=== PATIENT | female | born 1940 | race Caucasian/White ===

== ENCOUNTER 2025-08-11 10:27 | Outpatient (AMB) | payer MEDICARE, SELFPAY ==
--- OUTSIDE RECORDS SUMMARY | 2025-08-10 15:45 | XMS_ITS | Encounter Summary ---
Author Organization [facility] Address [address] [facility] [place] [address] Care Team Providers Care Supervisor Winter Name Role Phone Alix Bryan Primary Care Provider + [phone] Reason for Visit * Reason Comments Rectal Pain Encounter Details Date Type Department Care Team (Late st Contact Info) Description 08/10/2025 3:45 PM EST Office Visit [facility] of [address] [place] [phone] Michael García MD [address] [facility] [address] [address] Arrived Social History Tobacco Use Types Packs/Day Years Used Date Smoking Tobacco: Never Smokeless Tobacco: Never Alcohol Use Standard Drinks/Week Comments Not Currently 0 (1 standard drink = 0.6 oz pur e alcohol) rare Interpersonal Safety Answer Date Record ed Physical Abuse Unrecognized value 03/03/2025 Verbal Abuse Unrecognized value 03/03/2025 Comments No Sex and Gender Information Value Date Recorded Sex Assigned at Female 02/25/2025 12:07 PM EDT Legal Sex Female 11:15 AM EDT Gender Identity Female 03/03/2025 8:55 AM EDT Sexual Orientation Not on file documented as of this encounter Last Filed Vital Signs Vital Sign Reading Time Taken Comments Blood Pressure 128/69 08/10/2025 3:52 PM EST Pulse - - Temperature - - Respiratory Rate - - Oxygen Saturation - - Inhaled Oxygen Concentration - - Weight 52.2 kg (115 lb) 08/10/2025 3:52 PM EST Height 152.4 cm (5') 08/10/2025 3:52 PM EST Body Mass Index 22.46 08/10/2025 3:52 PM EST documented in this encounter Plan of Treatment Upcoming Encounters Date Type Department Care Team (Late st Contact Info) Description 08/12/2025 9:00 AM EST Office Visit [facility] [place] [address] [place] [address] Lucie Fitch PA [address] [place] [address] 05/17/2026 9:00 AM EDT Office Visit [facility] [place] [address] [place] [address] Filiberto Soler MD [address] [place] [phone] documented as of this encounter Visit Diagnoses Not on filedocumented in this encounter Care Teams Supervisor Winter Relationship Specialty Start Date End Date Alix Bryan PA [address] [place] [id number] PCP - General Instrument Repairer 03/09/25 documented as of this encounter
--- NOTE | 2025-08-11 10:29 | MHC.OFFVIS ---
Intake Visit Reasons: 6M HPI Comments Details: 84 years old woman with h/o migraine headaches, breast cancer, mild Alzheimer dementia, and chronic tension-type headaches. She is presenting with complaints of chronic headache and neck pain. Headache symptoms start in the back of her head and move towards the top, with notable pain worsening at night. The neck pain was initially minor at the lower neck but has since increased in severity. She finds some relief using heating pads and has recognized stress as a contributing factor to her pains. There is a history of systemic hypertension and hyperlipidemia. The patient mentioned previous imaging studies, though precise details were unavailable. 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 Medications for blood pressure and cholesterol management were indicated, though specifics were not described. Review of Systems Narrative - Neurological: Reports chronic headache and neck pain, worsens at night. Denies noticeable memory impairment. - Ophthalmologic: Reports legal blindness. - Musculoskeletal: Reports pain in neck starting from lower part, now increased and moved higher. - Psychiatric: Reports experiencing stress. Physical Exam Neuro Other: Mental Status: Alert and oriented to person, place, and time. Normal attention. Normal spontaneous speech, fluency, and comprehension. Cranial Nerves: CN II: Visual flowers full to confrontation, visual acuity intact. CN III, IV, : Pupils equal, round, reactive to light and accommodation. Extraocular movements are normal. CN V: Facial sensation is normal. CN VII: Facial movements symmetrical. CN VIII: Hearing intact to bedside conversation is normal. CN IX, X: Palate elevates symmetrically. CN XI: Shoulder shrug and head turn symmetrical. CN XII: Tongue midline without atrophy or fasciculations. mild forward cervical dystonia with moderate paraspinal muscle spasm Extrapyramidal: Full facial expressions and blinking. No rigidity. Movements are appropriate with no tremor or abnormality. Speech: Normal; no dysarthria or tremor. Assessment & Plan Assessment & Plan (1) Chronic tension type headache: Comment: Meds tried: Topiramate, cyclobenzperine Code(s): G44.229 - Chronic tension-type headache, not intractable Category: Medical Qualifiers: Intractability: not intractable Qualified Code(s): G44.229 - Chronic tension-type headache, not intractable (2) Neck pain: Code(s): M54.2 - Cervicalgia Category: Medical (3) Alzheimer disease: Code(s): G30.9 - Alzheimer's disease, unspecified; F02.80 - Dementia in other diseases classified elsewhere, unspecified severity, without behavioral disturbance, psychotic disturbance, mood disturbance, and anxiety Category: Medical (4) Cervical dystonia: Code(s): 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 - Spasmodic torticollis Category: Medical Plan Impression: a: Chronic tyension type/migraine type headaches b: Forward cervical dystonia c: Mild dementia, probably of Alzheimer type Rec: a: XR cervical spine b: DC topiramate c: Donepezil 10mg a day, which as per daughter is helping d: Try cyclobenzperine 5mg one at bedtime e: Bring CD of brain scan done at [facility] at next visit Orders: Orders XR cervical spine 2V Today G44.229 - Chronic tension-type headache, not intractable, M54.2 - Cervicalgia Medications: New cyclobenzaprine 5 mg PO BEDTIME 30 tabs 1RF Coding Level of Care Code Est Pt Level 3 (01158) Global (26618) Diagnoses Chronic tension-type headache, not intractable G44.229 Intractability: not intractable Neck pain M54.2 Alzheimer disease G30.9; F02.80 Cervical dystonia G24.3
--- OUTSIDE RECORDS SUMMARY | 2025-08-11 12:48 | XMS_ITS | Data Portability ---
Author Organization [facility] Address [address] [place] [address] Care Team Providers Care Coding Analyst Name Role Phone BRIELLE MALDONADO Primary Care Provider Assessment No assessment recorded. Plan of Treatment Reminders Order Date Submit Date Provider Last Modified By Organization Details Last Modified Time Details Appointments None record ed. Lab None record ed. Referral None record ed. Procedures None record ed. Surgeries None record ed. Imaging None record ed. Medication Orders None record ed. Patient TargetsNo targets recorded. Patient InstructionsNo instructions recorded. Reason for Referral None Reported. Problems Name Problem SNOMED Code Status Onset Date Resolution Date Notes Provider Name and Address Organization Details Recorded Time Diarrhea 29699076 Active 2024 Genevieve Muller APRN [address] [place], [address], [facility] 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 12:01:19 Problem Notes None recorded. Medical Equipment None Reported. Medications Name Sig Start Date Stop Date Status Note LastModified by Organization Details LastModified Time cyclobenzap rine 10 mg tablet TAKE 1 TABLET BY MOUTH EVERY DAY AT NIGHT 02/02 completed Not Available Not Available Not Available amoxicillin 500 mg capsule TAKE 1 CAPSULE BY MOUTH EVERY 6 HOURS UNTIL FINISHED 02/02 completed Not Available Not Available Not Available atorvastati n 20 mg tablet TAKE 1 TABLET BY MOUTH EVERY DAY active Not Available Not Available No t Available donepezil 5 mg tablet TAKE 1 TABLET BY MOUTH EVERY DAY AT BEDTIME FOR 90 DAYS active Not Available Not Available No t Available trazodone 50 mg tablet TAKE 3 TABLETS BY MOUTH AT BEDTIME NEEDED FOR SLEEP active Not Available Not Available No t Available ibuprofen 800 mg tablet TAKE 1 TABLET BY MOUTH EVERY 8 HOURS NEEDED FOR PAIN active Not Available Not Available No t Available donepezil 10 mg tablet TAKE 1 TABLET BY MOUTH EVERY DAY AT BEDTIME FOR 90 DAYS active Not Available Not Available No t Available prednisone 20 mg tablet TAKE 2 TABLETS BY MOUTH EVERY DAY FOR 5 DAYS 02/02 completed Not Available Not Available Not Available gabapentin 400 mg capsule TAKE 2 CAPSULES BY MOUTH 3 TIMES A DAY 02/02 completed Not Available Not Available Not Available cyanocobala min (vit B-12) 1,000 mcg tablet TAKE 1 TABLET BY MOUTH EVERY DAY active Not Available Not Available No t Available topiramate 25 mg tablet TAKE 1 TABLET BY MOUTH TWICE A DAY FOR 90 DAYS active Not Available Not Available No t Available metronidazo le 500 mg tablet TAKE 1 TABLET BY MOUTH AT 1PM, 2PM AND 8PM ON DAY PRIOR TO SURGERY active Not Available Not Available No t Available amlodipine 5 mg tablet TAKE 1 TABLET BY MOUTH EVERY DAY active Not Available Not Available No t Available tramadol 50 mg tablet TAKE 1 TABLET BY MOUTH EVERY 12 HOURS NEEDED FOR PAIN 02/02 completed Not Available Not Available Not Available vancomycin 125 mg capsule TAKE 1 CAPSULE BY MOUTH 4 TIMES A DAY FOR 10 DAYS. 02/02 completed Not Available Not Available Not Available ketorolac 0.5 % eye drops PLEASE SEE ATTACHED FOR DETAILED DIRECTION S active Not Available Not Available No t Available hydrocortis one 2.5 % topical cream with perineal applicator INSERT INTO THE RECTUM 2 TIMES A DAY IF NEEDED FOR HEMORRHOI DS. NOT LONGER THAN 7 DAYS IN A ROW. active Not Available Not Available No t Available alprazolam 0.5 mg tablet TAKE 1 TABLET BY MOUTH 1/2 HOUR BEFORE PROCEDURE MAY REPEAT X 1 active Not Available Not Available No t Available lorazepam 0.5 mg tablet TAKE 2 TABLETS BY MOUTH AT BEDTIME active Not Available Not Available No t Available methocarbam ol 750 mg tablet TAKE 1 TABLET BY MOUTH 3 TIMES A DAY 02/02 completed Not Available Not Available Not Available acyclovir 5 % topical ointment APPLY TO AFFECTED AREA TOPICALLY EVERY 3 HOURS FOR 7 DAYS 02/02 completed Not Available Not Available Not Available omeprazole 20 mg capsule,del ayed release TAKE 1 CAPSULE BY MOUTH EVERY DAY active Not Available Not Available No t Available metoprolol succinate ER 25 mg tablet,exte nded release 24 hr TAKE 1 TABLET BY MOUTH EVERY DAY 02/02 completed Not Available Not Available Not Available azelastine 137 mcg (0.1 %) nasal spray USE 1 SPRAY IN EACH NOSTRIL TWICE DAILY active Not Available Not Available No t Available estradiol 0.01% (0.1 mg/gram) vaginal cream APPLY 1 GM VAGINALLY AT BEDTIME DAILY FOR 2 WEEKS, THEN CHANGE TO TWICE WEEKLY. 02/02 completed Not Available Not Available Not Available neomycin 500 mg tablet SEE ADMIN INSTRUCTI ONS. TAKE 2 TABS BY MOUTH AT 1PM, 2PM AND 8PM ON DAY PRIOR TO SURGERY active Not Available Not Available No t Available hydrocortis one 2.5 % topical ointment APPLY TO AFFECTED AREA TWICE A DAY FOR 14 DAYS 02/02 completed Not Available Not Available Not Available fluoxetine 20 mg capsule TAKE 1 CAPSULE BY MOUTH EVERY DAY active Not Available Not Available No t Available fluticasone propionate 50 mcg/actuati on nasal spray,suspe nsion USE 1 SPRAY IN BOTH NOSTRILS DAILY IN THE MORNING FOR 14 DAYS active Not Available Not Available No t Available colestipol 1 gram tablet TAKE 2 TABLETS BY MOUTH 2 TIMES A DAY. 02/02 completed Not Available Not Available Not Available dicyclomine 10 mg capsule TAKE 1 CAPSULE BY MOUTH THREE TIMES A DAY NEEDED active Not Available Not Available No t Available amoxicillin 875 mg-potassiu m clavulanate 125 mg tablet TAKE 1 TABLET BY MOUTH EVERY 12 HOURS FOR 7 DAYS 02/02 completed Not Available Not Available Not Available oxycodone 5 mg tablet TAKE 1 TABLET BY MOUTH DAILY NEEDED FOR PAIN 02/02 completed Not Available Not Available Not Available cholestyram ine (with sugar) 4 gram powder for susp in a packet PLEASE SEE ATTACHED FOR DETAILED DIRECTION S 02/02 completed Not Available Not Available Not Available levocetiriz ine 5 mg tablet TAKE 1 TABLET BY MOUTH EVERY EVENING active Not Available Not Available No t Available Effer-K 10 mEq effervescen t tablet TAKE 2 TABLETS (20 MEQ TOTAL) BY MOUTH 1 (ONE) TIME EACH DAY. active Not Available Not Available No t Available sodium,pota ssium,mag sulfates 17.5 gram-3.13 gram-1.6 gram oral soln TAKE 177 ML BY MOUTH SEE ADMIN INSTRUCTI ONS. USE DIRECTED FOR BOWEL PREPARATI ON 02/02 completed Not Available Not Available Not Available Dificid 200 mg tablet TAKE 1 TABLET BY MOUTH 2 TIMES A DAY FOR 10 DAYS. 02/02 completed Not Available Not Available Not Available Arnuity Ellipta 100 mcg/actuati on powder for inhalation TAKE 1 PUFF BY MOUTH EVERY DAY 02/02 completed Not Available Not Available Not Available Vitals Date Recorded Body weight Heart rate Oxygen saturation Oxygen saturation in Arterial blood by Pulse oximetry Body mass index (BMI) Body height Systolic And Diastolic Provider Name and Address Organization Details Last Updated DateTime 5 96516.3 5 g 84 /min 96 % 96 % 21.9 kg/m2 152.4 cm 112/68 mm[Hg] Morelia Valdez [facility] 5 09:24:39 Social History None recorded. Functional Status None recorded. Mental Status None recorded. Family History Nothing Reported. Medical History No medical history recorded. Gynecological HistoryNo gynecological history recorded. Obstetrics History GPAL:G 0 P 0 0 0 0 Past Encounters Encounter ID Performer Location Encounter Start Date Encounter Closed Date Diagnosis/Indication Diagnosis SNOMED-CT Code Diagnosis ICD10 Code Diagnosis IMO Codes Diagnosis Note [id number] Genevieve Muller APRN [facility] [address] [place] [address] [place] [address] 02/02/2025 09:15:19 02/04/2025 13:45:27 Diarrhea 06394552 R19.7 [id number] It appears that she is suffering from overflow diarrhea as she had formed stools following treatment of C. difficile with fidaxomici n, and then was taking cholestyra mine and Imodium prophylact ically, and went on to have 4 days without a bowel movement. She then developed watery explosive diarrhea associated with urgency, incontinen ce and abdominal cramping. I have encouraged her to stop all anti-diarr heals and to bulk her stools with Benefiber 2 teaspoons daily. Additional ly, she should start on Florastor (Saccharom yces Boulardii) 2 capsules once daily for 1 month to promote healthy microbiome . We discussed her diet and she was educated to avoid greasy, spicy, acidic foods and stick with a mostly bland diet that is balanced in protein, high fats and high calories. I do think she should avoid high roughage fruits and vegetables and stick to soft fruits and vegetables . She has an upcoming visit with Dr. 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 Recurrent Clostridium difficile infection 641260856 A49.8 [id number] Infection in October and then December 2024. Most recently treated with fidaxomici n and had a repeat C. difficile study within the week which was negative. We discussed that should she have recurrence of C. difficile, she would be a great candidate for Vowst (oral microbiome tx) administra tion following antibiotic therapy. Health Concerns Section Related Observation LastModified by Organization Detai ls LastModified Time None Recorded Concern Status LastModified by Organization Details LastModified Time None Recorded Advance Directives Directive None Recorded Payers Insurance Date Sequence Insurance Name Policy Number Policy Dominique Covered Member ID Dominique Member ID Guarantor Name 02/04/2025 2 [place] [id number] Enma Robert Whitman [id number] Enma Whitman 02/04/2025 1 [place]: NGS Enma Whitman [id number] nEma Whitman Notes Date Note Type Note Provider Name and Address Organization Details Recorded Time 02/02/2025 text/html ROS as noted in the HPI Enma is an 84-year-old female who presents to gastroenterology for evaluation of diarrhea, referred by Dr. García' group for a second opinion and has been also referred to ID for recurrence C diff. She has a history of anxiety, colitis, diverticulitis, HTN, IBS, status postcholecystectomy. At the emergency room she reported diarrhea every 1/2 hour with no blood and some formed stool. Imaging revealed mild small bowel distention with possible areas of wall thickening concerning for enteritis.Colonoscopy performed on 11/20/2023 revealed TC polypectomy with focal adenomatous low-grade dysplasia consistent with tubular adenoma with no high-grade dysplasia or carcinoma identified.C. difficile + 11/26/2024Positive for c diff 12/29/2024Fecal calprotectin ordered on 01/17/2025, CBC revealed WBC 4.6, H&H 12.5/38.6, RBCs normocytic normochromic, platelets 260, CMP revealed sodium 132, K3.2, AST 30, ALT 27, alk phos 69, magnesium 1.9, TTG AB IgA negative no IgA quant.Patient is known to Dr. García, she has a history of perforated diverticulitis s/p Whaley's with reversal February 2024. Patient is having a hard time with nutrition, going to the hospital every other week for fluids and supportive care. Has lost 30lbs. Taking OTC pepto, kaopectate, imodium, cholestyramine, resumed benefiber. Hemorrhoids flared, treated with hydrocortisone topical. Has follow up with Dr. García on 02/03/2025. She is here today with her two daughters. Report that she completed fidaxomicin following c diff episode in December and recent c diff study performed at [facility] ED was negative.She had formed stools after c diff. She was taking cholestyramine plus Imodium prophylactically to prevent diarrhea. She then went 4 days without a bowel movement and following that she began experiencing explosive watery diarrhea associated with urgency and incontinence. She has very little stool that is being passed. She will have significant cramping otherwise no other abdominal pain, bloating or gas. She has no nausea or vomiting her appetite is fair. She is not eating much as she is fearful of what to eat as she is afraid of provoking more diarrhea. She is on KCl 10 mEq daily. She denies bloody stools, hematochezia, lightheadedness, fainting, falls, dysphagia, odynophagia. Genevieve Muller APRN [address] [place], [address], [facility] 02/02/2025 12:06:56 OBGyn Episode No OBEpisode recorded.
--- OUTSIDE RECORDS SUMMARY | 2025-08-11 12:49 | XMS_ITS | Clinical Summary ---
Author Organization [facility] Address [address] [place] [address] Care Team Providers Care Senior Licensing Manager Name Role Phone Ekaterina Nunn PA-C Primary Care Provider [phone] Allergies Active Allergy Reactions Criticality Noted Date Comments Mirtazapine Other (See Comments) 03/24/2024 Other 02/27/2024 Dogs- sneezing, rhinitis Ragweed Shortness Of Breath High 03/24/2024 Seasonal 02/27/2024 Medications Medication Sig Dispensed Refills Start Date End Date Status amLODIPine (NORVASC) tablet 5 mg Take 1 tablet (5 mg total) by mouth daily. 0 05/19/2023 Active atorvastatin (LIPITOR) tablet 20 mg every night at bedtime. 0 09/07/2023 Active azelastine (ASTELIN) 0.1 % nasal spray INHALE 1 SPRAYS EACH NOSTRIL TWICE DAILY 0 01/31/2020 Active gabapentin (NEURONTIN) 400 MG capsule Take 1 capsule (400 mg total) by mouth 3 (three) times a day. Takes 1- 400mg tab TID, often only takes BID 0 09/18/2021 Active levalbuterol (XOPENEX HFA) 45 MCG/ACT inhaler INHALE 1 TO 2 PUFF(S) BY MOUTH EVERY 4-6 HOURS NEEDED 0 10/05/2021 Active LORazepam (ATIVAN) 0.5 MG tablet TAKE 2 TABLETS BY MOUTH AT BEDTIME 0 01/19/2018 Active omeprazole (PriLOSEC) 20 MG capsule Take 1 capsule (20 mg total) by mouth daily. 0 10/06/2023 Active UNABLE TO FIND as needed. Med Name: albuterol inhaler 0 Active UNABLE TO FIND daily. Med Name: Probiotic 0 Active UNABLE TO FIND daily. Med Name: vitamin B12 1000mcg 0 Active UNABLE TO FIND daily. Med Name: AREDS vitamins 0 Active FLUoxetine (PROzac) 20 MG capsule Take 1 capsule (20 mg total) by mouth daily. 0 12/12/2023 Active levocetirizine (XYZAL) 5 MG tablet Take 1 tablet (5 mg total) by mouth daily as needed. 0 02/27/2024 Active Fluticasone Furoate (Arnuity Ellipta) 100 MCG/ACT AEPB Inhale 100 mcg into the lungs daily. 0 02/09/2024 Active albuterol (PROVENTIL) (2.5 MG/3ML) 0.083% nebulizer solution Take 3 mL (2.5 mg total) by nebulization every 6 (six) hours as needed for wheezing or shortness of breath. 75 mL 12 03/08/2024 Active pantoprazole (PROTONIX) 40 MG tablet Take 1 tablet (40 mg total) by mouth every morning on an empty stomach. 30 tablet 0 03/09/2024 Active prochlorperazine (COMPAZINE) 5 MG tablet Take 1 tablet (5 mg total) by mouth every 6 (six) hours as needed. 30 tablet 0 03/08/2024 Active buPROPion (WELLBUTRIN XL) 150 MG 24 hr tablet Take 1 tablet (150 mg total) by mouth. 0 11/07/2019 Active EPINEPHrine 0.3 MG/0.3ML SOAJ USE DIRECTED FOR ANAPHYLAXIS AND DIAL 911 AFTER USE. 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 Social History Tobacco Use Types Packs/Day Years Used Date Smoking Tobacco: Never Smokeless Tobacco: Never Tobacco Cessation:Counseling Given: Not Answered Alcohol Use Standard Drinks/Week Comments Yes 0 (1 standard drink = 0.6 oz pur e alcohol) occ Sex and Gender Information Value Date Recorded Sex Assigned at Not on file Gender Identity Not on file Sexual Orientation Not on file Job Start Date Occupation Industry Not on file Not on file Not on file Last Filed Vital Signs Vital Sign Reading Time Taken Comments Blood Pressure 142/80 05/12/2024 11:40 AM EDT Pulse 57 05/12/2024 11:40 AM EDT Temperature 36.8 C (98.2 F) 03/08/2024 6:20 AM EDT Respiratory Rate 18 03/08/2024 6:20 AM EDT Oxygen Saturation 98% 03/08/2024 6:20 AM EDT Inhaled Oxygen Concentration - - Weight 56.7 kg (125 lb) 05/12/2024 11:40 AM EDT Height 152.4 cm (5') 05/12/2024 11:40 AM EDT Body Mass Index 24.41 05/12/2024 11:40 AM EDT Plan of Treatment Health Maintenance Due Date Last Done Comments Depression Screening 1954 Preventative Health Evaluation 1960 Fall Risk Assessment 2007 Osteoporosis Screening (DEXA Scan) 2007 RSV Adult > 60+ Yrs or (1 - 1-dose 75+ series) 2017 DTap / Tdap / Td (2 - Td or Tdap) 03/03/2022 03/03/2012 COVID-19 Vaccine ( season) 2025 07/15/2023, 10/16/2022, 05/08/2022, Additional history exists Influenza Vaccine (#1) 2025 , 05/31/2022, 07/07/2021, Additional history exists Shingrix-Zoster Vaccine Completed 03/23/2023, 05/31 Pneumococcal Vaccine Completed 03/24/2023, 09/16/2016, 12/18/2014, Additional history exists Hepatitis B Vaccines Aged Out No long er eligible based on patient's age to complete this topic RSV Ped < 20 months Aged Out No longe r eligible based on patient's age to complete this topic Advance Directives For more information, please contact: [phone] Latest Code Status on File Code Status Date Activated Date Inactivated Comments Full Code 03/03/2024 2:37 PM 03/09/2024 2:12 AM . Code Status History Code Status Date Activated Date Inactivated Comments Full Code 03/03/2024 6:10 AM 03/03/2024 2:37 PM This co de status was ascertained in the following way: discussion with patient . Care Teams Senior Licensing Manager Relationship Specialty Start Date End Date Ekaterina Nunn PA-C PCP - General Medical Services 10/16/23
--- OUTSIDE RECORDS SUMMARY | 2025-08-11 12:49 | XMS_ITS ---
Author Organization [facility] y Care Team Providers Care Rehabilitation Services Counselor Name Role Phone Yazmin Bronson Unavailable Unavailable Clay Foster Unavailable Unavailable Allergies and adverse reactions Code CodeSystem Substance Reaction Severity StartDate Concern Status Dogs Unknown 03/08/2024 active Seasonal Unknown 03/08/2024 active Care Team Name Role Address Phone Organization Dates Clay Foster [facility] [address] [place] [address].[address], [place], [address], [place] (Office): [facility] 03/09/2024 - 03/22/2024 Yazmin Bronson [address], [place], [address], [place] (Office): [facility] 03/09/2024 - 03/22/2024 Immunizations Immunization Status Vaccine Details Vaccine Code CodeSystem Date Notes TB 2 Step Mantoux Skin Test completed tuberculin skin test; unspecified formulation lotNumber: [id number] expiry: 12/27/2025 Mfg: Sanof[employer] Given 0.1 ml Left Forearm intradermally Step 2 of Multi-step with next step required 98 CVX created date: 03/16/2024 consent date: 03/16/2024 administer ed date: 03/16/2024 TB 2 Step Mantoux Skin Test completed tuberculin skin test; unspecified formulation lotNumber: [id number] expiry: 01/26/2027 Mfg: sanofi pasteur limited Given 0.1 ml Left Forearm intradermally Step 1 of Multi-step with next step required 98 CVX created date: 03/09/2024 consent date: 03/09/2024 administer ed date: 03/09/2024 Shingles (Herpes Zoster) completed zoster vaccine recombinant 187 CVX created date: 03/09/2024 administer ed date: 03/23/2023 Rec'd SHOE REPAIRER Shingles (Herpes Zoster) completed zoster vaccine recombinant 187 CVX created date: 03/09/2024 administer ed date: 05/31/2022 Rec'd SHOE REPAIRER SARS-COV-2 (COVID-19) completed SARS-COV-2 (COVID-19) vaccine, mRNA, spike protein, LNP, preservative free, 30 mcg/0.3mL dose Mfg: Pfizer Step 1 of Multi-step with next step required 208 CVX created date: 03/09/2024 administer ed date: 11/08/2020 Rec'd SHOE REPAIRER SARS-COV-2 (COVID-19) completed SARS-COV-2 (COVID-19) vaccine, mRNA, spike protein, LNP, preservative free, 30 mcg/0.3mL dose Mfg: Pfizer Step 2 of Multi-step with next step required 208 CVX created date: 03/09/2024 administer ed date: 11/01/2020 Rec'd SHOE REPAIRER (PFIZER) Covid-19 Booster completed SARS-COV-2 (COVID-19) vaccine, mRNA, spike protein, LNP, preservative free, 30 mcg/0.3mL dose Mfg: Pfizer 208 CVX created date: 03/09/2024 administer ed date: 05/08/2022 Rec'd SHOE REPAIRER (PFIZER) Covid-19 Booster completed SARS-COV-2 (COVID-19) vaccine, mRNA, spike protein, LNP, preservative free, 30 mcg/0.3mL dose Mfg: Pfizer 208 CVX created date: 03/09/2024 administer ed date: 07/22/2021 Rec'd SHOE REPAIRER PCV 20 completed Pneumococcal conjugate vaccine 20-valent (PCV20), polysaccharide [id number] conjugate, adjuvant, preservative free 216 CVX created date: 03/09/2024 administer ed date: 03/24/2023 Rec'd SHOE REPAIRER (PFIZER) BIVALENT Covid-19 Booster completed SARS-COV-2 (COVID-19) vaccine, mRNA, spike protein, LNP, bivalent, preservative free, 30 mcg/0.3 mL dose, joslyn-sucrose formulation Mfg: Pfizer 300 CVX created date: 03/09/2024 administer ed date: 10/16/2022 Rec'd SHOE REPAIRER Influenza FLUAD Quadrivalent Vaccine Adjuvanted completed Influenza, high-dose, split virus, trivalent, injectable, preservative free 135 CVX created date: 03/09/2024 administer ed date: 06/04/2023 Rec'd SHOE REPAIRER (PFIZER) Covid Vaccine 2022 - cancelled SARS-COV-2 (COVID-19) vaccine, mRNA, spike protein, LNP, preservative free, joslyn-sucrose, 30 mcg/0.3 mL dose 309 CVX created date: 03/09/2024 consent date: 03/09/2024 Educated by on 03/09/2024 Resident wishes to discuss with her PCP ([facility]) Covid Vaccine 2022 - completed SARS-COV-2 (COVID-19) vaccine, mRNA, spike protein, LNP, preservative free, joslyn-sucrose, 30 mcg/0.3 mL dose Mfg: Pfizer 309 CVX created date: 03/09/2024 administer ed date: 07/15/2023 Rec'd SHOE REPAIRER RSV Vaccine: Abrysvo cancelled Respiratory syncytial virus (RSV), vaccine, bivalent, protein subunit RSV prefusion F, diluent reconstituted, 0.5 mL, preservative free 305 CVX created date: 03/09/2024 consent date: 03/09/2024 Educated by on 03/09/2024 Resident wishes to discuss with her PCP Mental Status Section Date Assessment Total Score Description 03/22/2024 BIMS 15 cognitively int act CAM 0 No delirium ind icated PHQ-9 00 03/15/2024 BIMS 15 cognitively int act CAM 0 No delirium ind icated PHQ-9 00 Insurance Providers Problems Problem # Description Date of onset Resolved Date Code CodeSystem Concern Status 1 ABDOMINAL MIGRAINE, INTRACTABLE 03/08/[address] active 2 AGE-RELATED NUCLEAR CATARACT, UNSPECIFIED EYE 03/08/[address] active 3 ANXIETY DISORDER, UNSPECIFIED 03/08/[address] active 4 CHRONIC OBSTRUCTIVE PULMONARY DISEASE, UNSPECIFIED 03/08/[address] active 5 COGNITIVE COMMUNICATION DEFICIT 03/08/[address] active 6 DEPRESSION, UNSPECIFIED 03/08/[address] active 7 DIVERTICULITIS OF INTESTINE, PART UNSPECIFIED, WITH PERFORATION AND ABSCESS WITHOUT BLEEDING 03/08/[address] active 8 ENCOUNTER FOR ATTENTION TO COLOSTOMY 03/08/[address] active 9 ESSENTIAL (PRIMARY) HYPERTENSION 03/08/[address] active 10 GASTRO-ESOPHAGEAL REFLUX DISEASE WITHOUT ESOPHAGITIS 03/08/[address] active 11 HYPERLIPIDEMIA, UNSPECIFIED 03/08/[address] active 12 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 03/08/[address] active 13 MUSCLE WEAKNESS (GENERALIZED) 03/08/[address] active 14 OTHER ABNORMALITIES OF GAIT AND MOBILITY 03/08/[address] active 15 PNEUMONIA, UNSPECIFIED ORGANISM 03/08/[address] active 16 RETENTION OF URINE, UNSPECIFIED 03/08/[address] active 17 UNSPECIFIED ATRIAL FIBRILLATION 03/08/[address] active Reason for Referral No Reasons for Referral Entered Social History Social History Observation Description Start Date End Date Code Code System Current Smoking Status Tobacco smoking consumption unknown 144392803 SNOMED CT Sex Assigned At Female 1940 46078-8 [facility] Gender Identity Sexual Orientation Vital Signs Code Code System Vitals Name Values and Units Timing Information 79201-6 [facility] Pain Level Value=0.0 03/22/2024 9279-1 [facility] Respiratory Rate Value=17.0 Units=/m in 03/22/2024 8462-4 [facility] Blood Pressure-Diastolic Value=79 Un its=mmHg 03/22/2024 8480-6 [facility] Blood Pressure-Systolic Kpurx=788 Un its=mmHg 03/22/2024 8310-5 [facility] Body Temperature Value=97.4 Units= F 03/22/2024 8867-4 [facility] Heart rate Value=77.0 Units=/min 56360-0 [facility] O2 % BldC Oximetry Value=95.0 Units= % 03/22/2024 34569-6 [facility] Weight Oaadl=182.6 Units=Lbs 8302-2 [facility] Height Value=60.0 Units=Inches 03/10/2024
--- OUTSIDE RECORDS SUMMARY | 2025-08-11 12:49 | XMS_ITS | Clinical Summary ---
Author Organization [facility] Address [address] [address] Phone Care Team Providers Care Manager Merchandise Name Role Phone Tawnya Love MD Primary Care Provider [phone] Allergies Active Allergy Reactions Criticality Noted Date Comments Mirtazapine Other (See Comments) 11/13/2021 Weight gain Pt is unsure Ragweed Shortness Of Breath High 03/24/2024 Venom-Honey Bee Anaphylaxis High 11/13/2021 Pt says she's not allergic anymore Medications albuterol 90 mcg/actuation inhaler Inhale 2 puffs into the lungs. Active B complex with C#20-folic acid (NEPHROCAPS) 1 mg Cap Take 1 capsule by mouth. Active gabapentin (NEURONTIN) 600 MG tablet Take 600 mg by mouth. Active hydroCHLOROthiazid e (HYDRODIURIL) 25 MG tablet Take 25 mg by mouth. Active magnesium gluconate (MAGONATE) 500 mg (27 mg elemental) Tab Take by mouth. Activ e omeprazole (PRILOSEC) 20 MG capsule Take 20 mg by mouth. 10/14/19 18 Active simvastatin (ZOCOR) 20 MG tablet Take 20 mg by mouth. 11/16/19 18 Active DULoxetine (CYMBALTA) 60 MG capsule Take 60 mg by mouth daily. Active clindamycin (CLEOCIN) 2 % vaginal cream Place 1 applicator (5 g total) vaginally nightly. 40 g 07/21/20 18 Active Additional Information Patient not taking.Reported on 01/25/2019 alendronate (FOSAMAX) 35 MG tablet Take 1 tablet (35 mg total) by mouth every 7 days. Take in the morning with a full glass of water, on an empty stomach, and do not take anything else by mouth or lie down for the next 30 min. 13 tablet 4 01/26/20 19 Active azelastine (ASTELIN) 137 mcg (0.1 %) nasal spray INHALE 1 SPRAYS EACH NOSTRIL TWICE DAILY 01/31/20 20 Active buPROPion (WELLBUTRIN XL) 150 MG ER 24 hr tablet Take 150 mg by mouth every morning. 03/30/20 20 Active citalopram (CELEXA) 20 MG tablet Take 20 mg by mouth every morning. 03/07/20 20 Active citalopram (CELEXA) 10 MG tablet Take 10 mg by mouth nightly at bedtime. 03/30/20 20 Active EPINEPHrine 0.3 mg/0.3 mL auto-injector USE DIRECTED FOR ANAPHYLAXIS AND DIAL 911 AFTER USE. 01/14/20 20 Active FLOVENT HFA 110 mcg/actuation inhaler INHALE 2 PUFFS BY MOUTH TWICE A DAY 01/05/20 20 Active KIANA GARCÍA [facility] Spcr USE WITH METERED DOSE INHALERS 04/03/20 Active LORazepam (ATIVAN) 0.5 MG tablet Take 0.5 mg by mouth daily as needed. 04/03/20 20 Active vitamins A,C,G-thvq-tfswku (PRESERVISION AREDS) 14,[id number] ytss-fk-cxkz Cap Take 1 capsule by mouth 2 (two) times a day with meals. Active estradiol, bulk, 100 % PowdIndications:Va ginitis and vulvovaginitis estradiol compounding powder 0.5 mg/gm in HRT heavy cream, 10 each of 3 ml syringes, apply one ml a day to the introitus 90 g 3 04/13/20 20 Active estradiol, bulk, 100 % PowdIndications:Va ginitis and vulvovaginitis estradiol compounding powder 0.5 mg/gm in HRT Heavy Base , 10 each of 3 ml syringes, apply one ml a day to the introitus 90 g 3 04/20/20 20 Active acyclovir (ZOVIRAX) 5 % ointment APPLY TO AFFECTED AREA TOPICALLY EVERY 3 HOURS FOR 7 DAYS 04/11/20 24 Active amLODIPine (NORVASC) 5 MG tablet Take 5 mg by mouth daily. 05/19/20 23 Active atorvastatin (LIPITOR) 20 MG tablet Take 20 mg by mouth daily. Active cyanocobalamin, vitamin B-12, 1000 MCG tablet Take 1,000 mcg by mouth daily. Active docusate sodium (COLACE) 100 MG capsule TAKE 1 CAPSULE BY MOUTH TWICE A DAY FOR 30 DAYS NEEDED FOR CONSTIPATION 05/09/20 23 Active FLUoxetine (PROZAC) 20 MG capsule Take by mouth daily. Active ARNUITY ELLIPTA 100 mcg/actuation DsDv Inhale 100 mcg into the lungs. 11/25/19 24 Active hydrocortisone 2.5 % ointment Apply topically 2 (two) times a day. 05/30/20 24 Active ketorolac (ACULAR) 0.5 % ophthalmic solution PLEASE SEE ATTACHED FOR DETAILED DIRECTIONS 03/10/20 24 Active levocetirizine (XYZAL) 5 MG tablet Take 5 mg by mouth daily as needed. 02/28/20 23 Active methocarbamoL (ROBAXIN) 750 MG tablet Take 750 mg by mouth 3 (three) times a day. Active metoprolol succinate (TOPROL-XL) 25 MG 24 hr tablet Take 25 mg by mouth. 03/30/20 24 Active pantoprazole (PROTONIX) 40 MG tablet Take 40 mg by mouth. 03/09/20 24 Active prochlorperazine (COMPAZINE) 5 MG tablet Take 5 mg by mouth every 6 (six) hours as needed. 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 Grief at loss of child 01/25/2019 Menopausal syndrome on hormone replacement thera py 01/25/2019 Women's annual routine gynecological examination 01/25/2019 Resolved Problems Problem Noted Date Diagnosed Date Resolved Date Vaginitis and vulvovaginitis 07/21/2018 04/13/2020 Menopause syndrome 07/21/2018 0 Family History Medical History Relation Comments No Known Problems Father No Known Problems Maternal Grandfather Kidney failure Maternal Grandmother Bladder Cancer Mother Colon cancer Mother Heart failure Mother No Known Problems Paternal Grandfather No Known Problems Paternal Grandmother Liver disease Son Stomach cancer Son Relation Status Comments Father Maternal Grandfather Maternal Grandmother Mother Paternal Grandfather Paternal Grandmother Son Social History Tobacco Use Types Packs/Day Years Used Date Smoking Tobacco: Never Smokeless Tobacco: Never Alcohol Use Standard Drinks/Week Comments Not Currently 0 (1 standard drink = 0.6 oz pur e alcohol) Education Answer Date Recorded Are you interested in more education? Not on meliton e 01/24/2023 Are you concerned about learning? Not on file 01/24/2023 No 01/24/2023 No 01/24/2023 Digital Access Answer Date Recorded No 02/22/2023 No 02/22/2023 Reliable internet access at home? Not on file 02/22/2023 Device with a working camera? Not on file Comments No Sex and Gender Information Value Date Recorded Sex Assigned at Not on file Legal Sex Female 2:14 PM EDT Gender Identity Not on file Sexual Orientation Not on file Last Filed Vital Signs Vital Sign Reading Time Taken Comments Blood Pressure 106/62 01/25/2019 10:23 AM EDT Pulse - - Temperature - - Respiratory Rate - - Oxygen Saturation - - Inhaled Oxygen Concentration - - Weight 65.8 kg (145 lb) 01/25/2019 10:23 AM EDT Height 157.5 cm (5' 2 ) 04/13/2020 11:24 AM EDT Body Mass Index 27.4 01/25/2019 10:23 AM EDT Plan of Treatment Health Maintenance Due Date Last Done Comments POTASSIUM LEVEL 1940 DEPRESSION SCREENING 1954 PNEUMOCOCCAL VACCINES (50+ years) (1 of 1 - PCV) 1992 OSTEOPOROSIS SCREENING INITIAL (ONE-TIME) 2007 ZOSTER VACCINES (2 of 3) 03/03/2013 01/06/2013 RSV VACCINE (1 - 1-dose 75+ series) 2017 Adult Td,Tdap Booster 03/03/2022 03/03/2012 INFLUENZA VACCINE (#1) 2025 , 07/04/2020, 07/12/2019, Additional history exists COVID-19 VACCINE ( - season) 2025 11/29/2020, 11/08/2020 HEPATITIS A VACCINES Aged Out No long er eligible based on patient's age to complete this topic HIB VACCINES Aged Out No longer eligi ble based on patient's age to complete this topic IPV VACCINES Aged Out No longer eligi ble based on patient's age to complete this topic MENINGOCOCCAL VACCINES (ACWY) Aged Out No longer eligible based on patient's age to complete this topic MENINGOCOCCAL VACCINES (B) Aged Out N o longer eligible based on patient's age to complete this topic Medical Devices Not on file Insurance [employer] MEDEX SUPPLEMENT MEDICARE PART A & B [employer] MEDEX SUPPLEMENT MEDICARE PART A & B Member Subscriber Plan / Payer ( fective 2007-Present) Name:Enma Whitman Member ID:[id number] Relation to Subscriber:Self Name:Enma Whitman Subscriber ID:[id number] Payer ID:[id number] Group ID:Not on file Type:Medicare Address: [employer] [address] [employer] MEDEX SUPPLEMENT MEDICARE PART A & B [employer] MEDEX SUPPLEMENT MEDICARE PART A & B Member Subscriber Plan / Payer ( fective 2007-Present) Name:Enma Whitman Member ID:[id number] Relation to Subscriber:Self Name:Enma Whitman Subscriber ID:[id number] Payer ID:[id number] Group ID:Not on file Type:Medicare Address: [employer] [address] [employer] MEDEX SUPPLEMENT MEDICARE PART A & B Member Subscriber Plan / Payer ( fective 2007-Present) Name:Enma Whitman Member ID:[id number] Relation to Subscriber:Self Name:Enma Whitman Subscriber ID:[id number] Payer ID:[id number] Group ID:Not on file Type:Medicare Address: [employer] [address] [employer] MEDEX SUPPLEMENT MEDICARE PART A & B [facility] MEDEX SUPPLEMENT MEDICARE PART A & B [employer] MEDEX SUPPLEMENT MEDICARE PART A & B Member Subscriber Plan / Payer ( fective 2007-Present) Name:Enma Whitman Member ID:[id number] Relation to Subscriber:Self Name:Enma Whitman Subscriber ID:[id number] Payer ID:[id number] Group ID:Not on file Type:Medicare [facility] [address] [employer] MEDEX SUPPLEMENT MEDICARE PART A & B Care Teams Manager Merchandise Relationship Specialty Start Date End Date Tawnya Love MD [address] [place] [address] [email or web address] PCP - General Internal Medicine 06/09/24 Additional Source Comments The information contained in this document represents components of the legal health record. It is not the complete legal health record.[facility]
--- OUTSIDE RECORDS SUMMARY | 2025-08-11 12:49 | XMS_ITS | Clinical Summary ---
Author Organization [facility] [address] [facility] Address [address] [place] [address] Phone Care Team Providers Care Leadership Development Manager Name Role Phone Alix Bryan Primary Care Provider [phone] Allergies Active Allergy Reactions Criticality Noted Date Comments Bee Venom Protein (Honey Bee) Anaphylaxis High 11/13/2021 Pt says she's not allergic anymore Mirtazapine 03/24/2024 Other Reaction(s): Other (See Comments) Mold 08/10/2025 Other 02/27/2024 Seasonal Dogs- sneezing, rhinitis Ragweed Shortness of breath High 03/24/2024 Medications albuterol 2.5 mg /3 mL (0.083 %) nebulizer solution Take 3 mL (2.5 mg total) by nebulization every 6 (six) hours as needed for wheezing or shortness of breath. 4 Active amLODIPine (NORVASC) 5 mg tablet Take 1 tablet (5 mg total) by mouth daily. 3 Active atorvastatin (LIPITOR) 20 mg tablet every night at bedtime. 3 Active azelastine (ASTELIN) 137 mcg (0.1 %) nasal spray 0 Active EPINEPHrine (EPIPEN) 0.3 mg/0.3 mL injection 4 Active FLUoxetine (PROzac) 20 mg capsule 4 Active fluticasone furoate (Arnuity Ellipta) 100 mcg/actuation blister with device inhaler 4 Active gabapentin (NEURONTIN) 400 mg capsule 1 Active levalbuterol (XOPENEX HFA) 45 mcg/actuation inhaler INHALE 1 TO 2 PUFF(S) BY MOUTH EVERY 4-6 HOURS NEEDED 2 Active levocetirizine (XYZAL) 5 mg tablet 4 Active LORazepam (ATIVAN) 0.5 mg tablet TAKE 2 TABLETS BY MOUTH AT BEDTIME 8 Active prochlorperazin e (COMPAZINE) 5 mg tablet 4 Active Lactobacillus acidophilus (PROBIOTIC ORAL) Active cyanocobalamin (VITAMIN B-12) 1,000 mcg tablet Active vit A/vit C/vit E/zinc/copper (PRESERVISION AREDS ORAL) Active simvastatin (ZOCOR) 20 mg tablet Take 20 mg by mouth at bedtime. - Oral Active gabapentin (NEURONTIN) 600 mg tablet Take 600 mg by mouth 3 times daily. - Oral Active albuterol HFA (PROVENTIL HFA;VENTOLIN HFA) 108 (90 Base) MCG/ACT inhaler Inhale by mouth. Inhale 2 Puffs into the lungs every 4 hours as needed. - Inhalation Active ostomy supplies (Adhesive Remover Wipes) swab 3 Active fluticasone HFA (Flovent HFA) 110 mcg/actuation inhaler Inhale 2 puffs by mouth 2 (two) times a day. 0 Active hydrocortisone 2.5 % ointment Apply topically 2 times daily. 4 Active loratadine (CLARITIN) 10 mg tablet Take 1 tablet (10 mg total) by mouth. 4 Active donepeziL (ARICEPT) 5 mg tablet 5 Active topiramate (TOPAMAX) 25 mg tablet Take 1 tablet (25 mg total) by mouth 1 (one) time each day. for 90 days 5 Active traZODone (DESYREL) 50 mg tablet Take 3 tablets (150 mg total) by mouth at bedtime as needed. 5 Active hydrocortisone (ANUSOL-HC) 2.5 % rectal cream Insert into the rectum 2 (two) times a day if needed for hemorrhoids. Do not use longer than 7 days in a row. 28 g 1 Active multivitamin with minerals tablet Take 1 tablet by mouth 1 (one) time each day. 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 01/11/2025 Chronic rhinitis 01/11/2025 Neck pain 01/11/2025 Mild early onset Alzheimer's dementia ([facility] V24, [facility] V28) 12/20/2024 Macular degeneration, bilateral 10/09/2024 A-fib ([facility] V24, [facility] V28) 10/09/2024 Anxiety and depression 10/09/2024 Right sided colitis with abscess 10/09/2024 S/P partial resection of colon 10/09/2024 History of colostomy reversal 10/09/2024 Retention of urine 03/08/2024 Abdominal migraine 03/08/2024 Abnormal gait 03/08/2024 Cognitive communication disorder 03/08/2024 Diverticular disease 03/08/2024 Chronic obstructive lung disease ([facility] V[facility], [facility] V28) 03/08/2024 Muscle weakness 03/08/2024 Nuclear senile cataract 03/08/2024 Atrial fibrillation ([facility] V24, [facility] V28) 0 03/08/2024 Depressive disorder 03/08/2024 Essential hypertension 03/08/2024 Gastroesophageal reflux disease without esophagi tis 03/08/2024 Pneumonia 03/08/2024 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 ([facility] V24, [facility] V28) 03/08/2024 Vitamin B12 deficiency 01/21/2024 Diverticulitis of large intestine with complicat ion 01/22/2023 Abscess of female pelvis 09/11/2022 Overview (01/11/2025): gordy-colonic - December 2021 Colitis 09/11/2022 Syncope and collapse 03/06/2022 Ductal carcinoma in situ of breast 11/14/2021 Overview (10/09/2024): Dx 08/2021 History of cholecystectomy 11/14/2021 Low back pain 11/14/2021 Mild intermittent asthma 11/14/2021 Restless legs 11/14/2021 Abnormal magnetic resonance imaging study 2021 Atrophic vaginitis 11/14/2021 Benign paroxysmal positional vertigo 11/14/2021 Claustrophobia 11/14/2021 Disorder of intervertebral disc of lumbar spine 11/14/2021 Fatigue 11/14/2021 Foot pain 11/14/2021 Multinodular goiter 11/14/2021 Macular degeneration 11/14/2021 Nocturnal enuresis 11/14/2021 Numbness of toes 11/14/2021 Neuralgia 11/14/2021 Tinnitus 11/14/2021 Thyroid nodule 11/14/2021 Strain of neck muscle 11/14/2021 Senile hyperkeratosis 11/14/2021 Anxiety disorder 11/14/2021 Uncomplicated varicose veins, unspecified latera lity 11/14/2021 GERD (gastroesophageal reflux disease) Hyperlipidemia 11/13/2021 Hypertension 11/13/2021 Irritable bowel syndrome 11/13/2021 Assessment & Plan (10/09/2024 10:05 AM EST): Improved since starting dicyclomine. Continue as needed. Right sided pain has broad differential, pain only present once for about 1 hr. Suspect surgical adhesions or IBS, advised patient to call if continued symptoms or onset of new symptoms. Further workup pending reoccurrence. Advised patient to keep log of food intake during symptoms if pain returns. Also, use dose of dicyclomine if pain occurs. Osteoporosis 11/13/2021 Actinic keratosis 11/13/2021 Allergic rhinitis 11/13/2021 Candidiasis of vagina 11/13/2021 Diverticulitis 11/13/2021 Hearing loss 11/13/2021 Insomnia 11/13/2021 Lung mass 11/13/2021 Impingement syndrome of shoulder region 11/13/19 Peripheral neuropathy 11/13/2021 Osteopenia 11/13/2021 Atrophy of vulva 04/13/2020 Grief 01/25/2019 Menopausal syndrome 01/25/2019 Herniation of lumbar intervertebral disc with ra diculopathy 08/13/2012 Encounters Date Type Department Care Team Description 08/10/2025 3:45 PM EST Office Visit [facility] [address] [place] [address] Michael García MD Arrived 06/06/2025 Telephone [facility] [address] [place] [address] Pascale Valenzuela [place] 06/03/2025 8:30 AM EDT Office Visit [facility] [place] [address] [place] [address] Michael García MD Full incontinence of feces (Primary Dx); Urinary urgency 05/20/2025 10:15 AM EDT Office Visit [facility] [place] [address] [place] [phone] Filiberto Soler MD Atrial premature depolarization (Primary Dx); Swelling of lower extremity from Last 3 Months Immunizations Immunization Administration Dates Next Due Pfizer SARS-CoV-2 COVID-19, mRNA, LNP-S, preservative free 07/15/2023,05/08/2022,07/22/2021,2020,11/08/2020 SARS-COV-2 (COVID-19) Vaccin e, Unspecified 10/16/2022 Surgical History Surgery Date Site/Laterality Comments COLOSTOMY 2021 PROCEDURE:COLOSTOMY MASTECTOMY Left PROCEDURE:MASTECTOMY LAPAROSCOPY CLOSURE ENTEROSTOMY 03/03/2024 N/A PROCEDURE:CLOSURE ENTEROSTOMY;COMMENT:Proc edure: LAPAROSCOPIC POSSIBLE OPEN COLOSTOMY CLOSURE; Surgeon: Michael García MD; Location: [facility] MAIN OPERATING ROOM; Service: Colorectal; Laterality: N/A; 4+ CLOSURE -1ST CASE PLEASE COSURGEON: FELLOW COLONOSCOPY: PROVATION ONLY COLONOSCOPY 03/03/2024 N/A COLONOSCOPY; Surgeon: Michael García MD; Location: [facility] RO[facility]; Service: Colorectal; Laterality: N/A; 4+ CLOSURE -1ST CASE PLEASE COSURGEON: FELLOW COLONOSCOPY: PROVATION ONLY CYSTOSCOPY 03/03/2024 N/A PROCEDURE:CYSTOSCOPY;COM MENT:Procedure: CYSTOSCOPY INSERTION BILATERAL URETERAL CATHETERS; Surgeon: James Matthew MD; Location: [facility] RO[facility]; Service: Urology; Laterality: N/A; 4+ CLOSURE -1ST CASE PLEASE COSURGEON: FELLOW COLONOSCOPY: PROVATION ONLY COLONOSCOPY 09/29/2015 - 10/29/2015 CHOLECYSTECTOMY INCONTINENCE SURGERY Medical History Medical History Date Comments Breast cancer ([facility] V24, [facility] V28) DX:Breast cancer (HCC) Diverticulitis DX:Diverticuliti s GERD (gastroesophageal reflux disease) DX:GERD (gastroesophageal reflux disease) Irritable bowel DX:Irritable bow el Urinary tract infection DX:Urina ry tract infection Migraine headache DX:Migraine he adache;COMMENT:remoted Anxiety DX:Anxiety Visual impairment DX:Visual impa irment;COMMENT:left eye poor vision. Right eye to have cataract removal soon. Glasses Cataract DX:Cataract Hypertension Family History Medical History Relation Name Comments Multiple sclerosis Brother Cancer Child Colon cancer Mother Heart failure Mother bladder cancer Mother Lung cancer Sister Relation Name Status Comments Brother Child Alive Mother Sister Social History Tobacco Use Types Packs/Day Years Used Date Smoking Tobacco: Never Smokeless Tobacco: Never Tobacco Cessation:Counseling Given: Not Answered Alcohol Use Standard Drinks/Week Comments Not Currently [...] AM EDT Sexual Orientation Not on file Obstetrics History Last Filed Vital Signs Vital Sign Reading Time Taken Comments Blood Pressure 128/69 08/10/2025 3:52 PM EST Pulse 74 06/03/2025 8:35 AM EDT Temperature 36.5 C (97.7 F) 06/03/2025 8:35 AM EDT Respiratory Rate 16 06/03/2025 8:35 AM EDT Oxygen Saturation 97% 06/03/2025 8:35 AM EDT Inhaled Oxygen Concentration - - Weight 52.2 kg (115 lb) 08/10/2025 3:52 PM EST Height 152.4 cm (5') 08/10/2025 3:52 PM EST Body Mass Index 22.46 08/10/2025 3:52 PM EST Plan of Treatment Upcoming Encounters Date Type Department Care Team (Late st Contact Info) Description 08/12/2025 9:00 AM EST [facility] Visit [facility] [place] [address] [place] [address] Lucie Fitch PA [address] [place] [address] 05/17/2026 9:00 AM EDT Office Visit [facility] [place] [address] [place] [address] Filiberto Soler MD [address] [place] [phone] Health Maintenance Due Date Last Done Comments DTaP,Tdap,and Td Vaccines (2 - Td or Tdap) 03/03/2022 03/03/2012 Cholesterol Screening (Lipid Panel) 07/21/2024 Medicare Annual Wellness Visit 07/21/2024 Osteoporosis Screening (Bone Density Screening) 07/21/2024 Social Influencers of Health Screening 07/21/2024 Depression Screening 09/29/2024 COVID-19 Vaccine ( season) 2025 06/07/2024, 07/15/2023, 10/16/2022, Additional history exists Influenza Vaccine (#1) 2025 , 06/04/2023, 05/31/2022, Additional history exists Hypertension/CHF/CAD Annual BMP Blood Test 01/17/2026 01/17/2025, 12/28/2024, 12/20/2024, Additional history exists Falls Risk Assessment 03/03/2026 03/03/2025 Pneumococcal Vaccine: 50+ Years Completed 09/16/2016, 12/18/2014, 07/07/2007 Zoster Vaccines Completed 03/23/2023, 0910/2021, 01/06/2013 RSV Immunization Adult Patients Completed 06/21/2024 HIB Vaccines Aged Out No longer eligi ble based on patient's age to complete this topic HPV Vaccines Aged Out No longer eligi ble based on patient's age to complete this topic Hepatitis A Vaccines Aged Out No long er eligible based on patient's age to complete this topic Hepatitis B Vaccines Aged Out No long er eligible based on patient's age to complete this topic IPV Vaccines Aged Out No longer eligi ble based on patient's age to complete this topic MMR Vaccines Aged Out No longer eligi ble based on patient's age to complete this topic Meningococcal ACWY Vaccine Aged Out N o longer eligible based on patient's age to complete this topic Meningococcal B Vaccine Aged Out No l onger eligible based on patient's age to complete this topic RSV Immunization Patients Under 20 months Aged Out No longer eligible based on patient's age to complete this topic Varicella Vaccines Aged Out No longer eligible based on patient's age to complete this topic Medical Devices Implanted Type Area Resource Development Manager Device Identifier Shelf Expiration Date Model / Serial / Lot Neurostimulator Non Rechrg - [id number] - [id number] Implanted:Qty: 1 on 03/03/2025 by Michael García MD at [facility] Neurostim N/A: Back [id number] 03/10/2025 [id number] / [id number] / NA Procedures Procedure Name Priority Date/Time Associated Diagnosis Comments URINALYSIS WITH REFLEX MICROSCOPIC Routine 06/03/2025 9:27 AM EDT Full incontinence of feces URINALYSIS WITH REFLEX MICROSCOPIC Routine 06/03/2025 9:27 AM EDT Full incontinence of feces ECG 12-LEAD Routine 05/20/2025 10:53 AM EDT Atrial premature depolarization COMPREHENSIVE METABOLIC PANEL Routine 01/17/2025 12:43 PM EDT Diarrhea of infectious origin from Last 3 Months or Most Recently Relevant to Health Maintenance Results * (ABNORMAL) Urinalysis with reflex microscopic (06/03/2025 9:27 AM EDT) Color, Urine Yellow Yellow, Colorless LAB URINALYSIS - AUTOMATED METHOD 06/03/2025 12:13 PM EDT [facility] Clarity, Urine Clear Clear LAB URINALYSIS - AUTOMATED METHOD 06/03/2025 12:13 PM EDT [facility] Specific Rison Urine 1.018 1.005 - 1.030 LAB URINALYSIS - AUTOMATED METHOD 06/03/2025 12:13 PM EDT [facility] pH, Urine 5.0(A) 5.0 - 8.0 pH LAB URINALYSIS - AUTOMATED METHOD 06/03/2025 12:13 PM EDT [facility] Leukocytes, Urine Negative Negative WBCs/mcL LAB URINALYSIS - AUTOMATED METHOD 06/03/2025 12:13 PM EDT [facility] Nitrite, Urine Negative Negative LAB URINALYSIS - AUTOMATED METHOD 06/03/2025 12:13 PM EDT [facility] Protein, Urine Negative Negative mg/dL LAB URINALYSIS - AUTOMATED METHOD 06/03/2025 12:13 PM EDT [facility] Glucose, Urine Negative Negative mg/dL LAB URINALYSIS - AUTOMATED METHOD 06/03/2025 12:13 PM EDT [facility] Ketones, Urine Negative Negative mg/dL LAB URINALYSIS - AUTOMATED METHOD 06/03/2025 12:13 PM EDT [facility] Blood, Urine Negative Negative mg/dL LAB URINALYSIS - AUTOMATED METHOD 06/03/2025 12:13 PM EDT [facility] Urine Urine specimen obtained by clean catch procedure / Unknown Non-blood Collection / Unknown 06/03/2025 9:27 AM EDT 06/03/2025 11:54 AM EDT us Michael García MD LAB URINE ORDERABLES Fin al Result [facility] [address] [place] [address], [place] [phone] * ECG 12 lead (05/20/2025 10:53 AM EDT) Impressions Funmi Koehler MA - 05/20/2025 10:53 AM EDT Normal sinus rhythm, no acute st-t wave changes Filiberto Soler MD ECG ORDERABLES Final Result * (ABNORMAL) Comprehensive metabolic panel (01/17/2025 12:43 PM EDT) Sodium 132(L) 133 - 145 mmol/L LAB CHEMISTRY METHOD 01/17/2025 7:08 PM [facility] Potassium 3.2(L) 3.5 - 5.5 mmol/L LAB CHEMISTRY METHOD 01/17/2025 7:08 PM [facility] Chloride 101 96 - 110 mmol/L LAB CHEMISTRY METHOD 01/17/2025 7:08 PM [facility] CO2 22 21 - 32 mmol/L LAB CHEMISTRY METHOD 01/17/2025 7:08 PM [facility] Anion Gap 9 3 - 11 LAB CHEMISTRY METHOD 01/17/2025 7:08 PM [facility] Glucose 87 70 - 100 mg/dL LAB CHEMISTRY METHOD 01/17/2025 7:08 PM [facility] BUN 11 5 - 25 mg/dL LAB CHEMISTRY METHOD 01/17/2025 7:08 PM [facility] Creatinine 0.83 0.50 - 1.10 mg/dL LAB CHEMISTRY METHOD 01/17/2025 7:08 PM [facility] eGFR 70 >=60 mL/min/1. 73m2 LAB CHEMISTRY METHOD 01/17/2025 7:08 PM [facility] Comment:Calculation based on the Chronic Kidney Disease Epidemiology Collaboration (CKD-EPI) equation refit without adjustment for race. BUN/Creatinine Ratio 13.3 LAB CHEMISTRY METHOD 01/17/2025 7:08 PM [facility] Calcium 9.3 8.5 - 10.5 mg/dL LAB CHEMISTRY METHOD 01/17/2025 7:08 PM EDT [facility] AST (SGOT) 30 10 - 42 unit/L LAB CHEMISTRY METHOD 01/17/2025 7:08 PM EDT [facility] ALT (SGPT) 27 10 - 60 unit/L LAB CHEMISTRY METHOD 01/17/2025 7:08 PM EDT [facility] Alkaline Phosphatase 69 42 - 121 unit/L LAB CHEMISTRY METHOD 01/17/2025 7:08 PM EDT [facility] Total Protein 7.0 6.0 - 8.0 g/dL LAB CHEMISTRY METHOD 01/17/2025 7:08 PM EDT [facility] Albumin 4.0 3.2 - 5.0 g/dL LAB CHEMISTRY METHOD 01/17/2025 7:08 PM EDT [facility] Total Bilirubin 0.5 0.0 - 1.4 mg/dL LAB CHEMISTRY METHOD 01/17/2025 7:08 PM EDT [facility] Blood Venous blood specimen / Unknown Venipuncture / Unknown 01/17/2025 12:43 PM EDT 01/17/2025 3:17 PM EDT us Leslie CASAREZ LAB BLOOD ORDERABLES Final Resu lt [facility] [address] [place] [address], from Last 3 Months or Most Recently Relevant to Health Maintenance Insurance MEDICARE [facility] MEDICARE [facility] Advance Directives Documents on File Type Date Recorded 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 [facility] Health Care Decision (hx) 12/27/2010 AD [place] DIRECTIVE Health Care Decision (hx) 12/27/2010 AD [place] DIRECTIVE Health Care Decision (hx) 12/27/2010 AD [place] DIRECTIVE Health Care Decision (hx) 12/27/2010 AD [place] DIRECTIVE Health Care Decision (hx) 12/27/2010 AD [place] DIRECTIVE Health Care Decision (hx) 12/27/2010 AD [place] DIRECTIVE Health Care Decision (hx) 12/27/2010 AD [place] DIRECTIVE Health Care Decision (hx) 12/27/2010 AD [place] DIRECTIVE * Full Code - Default (Latest Code Status on File) Date Activated Date Inactivated Comments 03/03/2025 9:02 AM 03/03/2025 3:04 PM This is order is used when code status has not been discussed with the patient, or code status is otherwise unknown/unconfirmed To update the patient's code status, place a code status order. Do not modify or discontinue any currently active code status orders. Care Teams Leadership Development Manager Relationship Specialty Start Date End Date Alix Bryan PA [address] [place] [id number] PCP - General Automobile Body Customizer 03/09/25
--- OUTSIDE RECORDS SUMMARY | 2025-08-11 12:49 | XMS_ITS | Clinical Summary ---
Author Organization [facility] Address [address] [place] [address] Phone Care Team Providers Care Front Office Assistant Name Role Phone Tawnya Love MD Primary Care Provider [phone] Allergies Active Allergy Reactions Criticality Noted Date Comments Bee Venom Anaphylaxis High 11/13/2021 Pt says she's not allergic anymore Mirtazapine 11/13/2021 Weight gain Pt is unsure Mixed Ragweed Shortness of breath High 11/13/2021 Other 03/06/2022 Medications acetaminophen (TYLENOL) 325 MG tablet TAKE 2 TABLETS BY MOUTH EVERY 6 HOURS FOR 5 DAYS 2 Active azelastine (ASTELIN) 0.1 % nasal spray INHALE 1 SPRAYS EACH NOSTRIL TWICE DAILY 1 Active buPROPion XL (WELLBUTRIN XL) 150 MG 24 hr tablet 2 Active citalopram (CeleXA) 20 MG tablet Take 20 mg by mouth 2 Active Flovent HFA 110 MCG/ACT inhaler TAKE 2 PUFFS BY MOUTH TWICE A DAY 2 Active levalbuterol (XOPENEX HFA) 45 MCG/ACT inhaler INHALE 1 TO 2 PUFF(S) BY MOUTH EVERY 4-6 HOURS NEEDED 2 Active [facility] Pain Relief 4 % cream PLEASE SEE ATTACHED FOR DETAILED DIRECTIONS 2 Active LORazepam (ATIVAN) 0.5 MG tablet Take 0.5 mg by mouth 1 (one) time each day if needed 2 Active omeprazole (PriLOSEC) [address] capsule Take by mouth 1 (one) time each day 2 Active albuterol HFA (PROVENTIL HFA;VENTOLIN HFA) 108 (90 Base) MCG/ACT inhaler Inhale 2 puffs Activ e albuterol (2.5 MG/3ML) 0.083% nebulizer solution Inhale 2 Active cholecalcifero l (VITAMIN D-3 SUPER STRENGTH) 50 MCG (2000 UT) tablet 100 mcg 9 Active clindamycin (CLEOCIN) 2 % vaginal cream Insert 5 g into the vagina daily 8 Active EPINEPHrine (EPIPEN) 0.3 MG/0.3ML injection syringe USE DIRECTED FOR ANAPHYLAXIS AND DIAL 911 AFTER USE. 0 Active fluticasone (FLONASE) 50 MCG/ACT nasal spray NASAL, SUSPENSION, 6 Refill(s),, 0 Refills, 05/03/19 19:01:00 EDT 9 Active gabapentin (NEURONTIN) 400 MG capsule Take 2 capsules by mouth 1 Active ondansetron (ZOFRAN) 8 MG tablet TAKE 1 TABLET BY MOUTH EVERY 8 HOURS NEEDED FOR NAUSEA/VOMITING,IN STR:MAY CAUSE CONSTIPATION 2 Active Enoxaparin Sodium 40 MG/0.4ML solution prefilled syringe INJECT THE CONTENTS OF 1 SYRINGE (0.4 ML) SUBCUTANEOUSLY EVERY DAY 2 Active amLODIPine (NORVASC) 5 MG tablet TAKE 1 TABLET BY MOUTH 1 TIME EACH DAY. 90 tablet 3 3 Active cyanocobalamin (VITAMIN B-12) 1000 MCG tablet Take 1,000 mcg by mouth 1 (one) time each day 4 Active Arnuity Ellipta 100 MCG/ACT aerosol powder TAKE 1 PUFF BY MOUTH EVERY DAY 4 Active FLUoxetine (PROzac) 20 MG capsule Take by mouth 1 (one) time each day Active levocetirizine (XYZAL) 5 MG tablet Take 5 mg by mouth 1 (one) time each day if needed Active atorvastatin (LIPITOR) 20 MG tablet TAKE 1 TABLET BY MOUTH EVERY DAY *REPLACES SIMVASTATIN* Active Active Problems Problem Noted Date Diagnosed Date Vitamin B12 deficiency 01/21/2024 Diverticulitis of large intestine 01/22/2023 Abscess of female pelvis 09/11/2022 Overview (09/11/2022): gordy-colonic - December 2021 Colitis 09/11/2022 Syncope and collapse 03/06/2022 Anxiety disorder 11/14/2021 Benign paroxysmal positional vertigo 11/14/2021 Claustrophobia 11/14/2021 Degenerative disorder of macula 11/14/2021 Atrophic vaginitis 11/14/2021 Disorder of lumbar disc 11/14/2021 Foot pain 11/14/2021 Fatigue 11/14/2021 History of cholecystectomy 11/14/2021 Ductal carcinoma in situ of breast 11/14/2021 Overview (11/14/2021): Dx 08/2021 Low back pain 11/14/2021 Mild intermittent asthma 11/14/2021 MRI scan abnormal 11/14/2021 Neuralgia 11/14/2021 Multinodular goiter 11/14/2021 Numbness of toe 11/14/2021 Nocturnal enuresis 11/14/2021 Postoperative nausea and vomiting 11/14/2021 Overview (11/14/2021): pt does not recall this Senile hyperkeratosis 11/14/2021 Restless legs 11/14/2021 Strain of neck muscle 11/14/2021 Thyroid nodule 11/14/2021 Tinnitus 11/14/2021 Venous varices 11/14/2021 Hypertension 11/13/2021 Hyperlipidemia 11/13/2021 Hearing loss 11/13/2021 Gastroesophageal reflux disease 11/13/2021 Irritable bowel syndrome 11/13/2021 Insomnia 11/13/2021 Osteopenia 11/13/2021 Osteoporosis 11/13/2021 Peripheral neuropathy 11/13/2021 Lung mass 11/13/2021 Actinic keratosis 11/13/2021 Allergic rhinitis 11/13/2021 Candidiasis of vagina 11/13/2021 Diverticulitis 11/13/2021 Impingement syndrome of shoulder region 11/13/19 Atrophy of vulva 04/13/2020 Grief finding 01/25/2019 Menopausal syndrome 01/25/2019 Patient encounter status 01/25/2019 Lumbar disc prolapse with radiculopathy 08/13/20 12 Immunizations Immunization Administration Dates Next Due Influenza Split High Dose Pr eservative Free IM 07/12/2019,06/14/2017,06/26/2015 Influenza Whole 07/12/2019 Influenza, Quadrivalent, Wit h Preservative 07/05/2014 Influenza, Trivalent, Adjuvanted 06/25/2018,11/2015 Influenza, Unspecified 06/04/2023,2022,05/31/2022,07/07,07/04/2020,07/04/2020,06/25/2018 ,06/14/2017,07/01/2016,06/26/2015,03/2014,07/01/2013 Pfizer Covid-19 Vaccine, Mrn a, LNP-S, PF, joslyn-sucrose, 30 mcg/0.3 mL 07/15/2023 Pfizer SARS-COV-2 05/08/2022,,11/29/2020,11/08 Pneumococcal Conjugate 03/24/2023 Pneumococcal Conjugate 13-Valent 12/18/2014 Pneumococcal Polysaccharide 09/16/2016, 7 SARS-CoV-2, Unspecified 10/16/2022 Shingrix 03/23/2023,05/31/2022 Tdap 03/03/2012 Zoster 01/06/2013 Family History Medical History Relation Comments Multiple sclerosis Brother Other Brother Cancer Child Diabetes Child Cancer Mother Heart disease Mother Rheum arthritis Sister Relation Status Comments Brother Child Alive Mother Sister Social History Tobacco Use Types Packs/Day Years Used Date Smoking Tobacco: Never Smokeless Tobacco: Never Tobacco Cessation:Counseling Given: No Alcohol Use Standard Drinks/Week Comments Yes 0 (1 standard drink = 0.6 oz pur e alcohol) socially Comments Unknown Sex and Gender Information Value Date Recorded Sex Assigned at Not on file Legal Sex Female 9:48 AM EDT Gender Identity Not on file Sexual Orientation Not on file Last Filed Vital Signs Vital Sign Reading Time Taken Comments Blood Pressure 145/85 01/21/2024 1:09 PM EDT Pulse 73 01/21/2024 1:09 PM EDT Temperature - - Respiratory Rate 16 11/14/2021 10:52 AM EST Oxygen Saturation 97% 11/14/2021 10:52 AM EST Inhaled Oxygen Concentration - - Weight 59 kg (130 lb) 01/21/2024 1:09 PM EDT Height 165.1 cm (5' 5 ) 11/14/2021 10:52 AM EST Body Mass Index 21.63 11/14/2021 10:52 AM EST Plan of Treatment Health Maintenance Due Date Last Done Comments Influenza Vaccine (#1) 2025 , 06/04/2023, 05/31/2022, Additional history exists Pneumococcal Vaccine: 50+ Years Completed 03/24/2023, 09/16/2016, 12/18/2014, Additional history exists Hepatitis B Vaccine Aged Out No longe r eligible based on patient's age to complete this topic Insurance Medicare [facility] Medicare Med Medicare [facility] Care Teams Front Office Assistant Relationship Specialty Start Date End Date Tawnya Love MD [address] [place] [id number] PCP - General Internal Medicine 11/12/21
== END 2025-08-11 10:45 | disposition home or self-care (01) ==
LOC: HO.HSM 10:28
PROVIDERS: Family Provider Internal Medicine; PCP Internal Medicine; Visit Provider Psychiatry & Neurology Neurology
DX: G44.229 Chronic tension-type headache, not intractable (principal); M54.2 Cervicalgia; G30.9 Alzheimer's disease, unspecified; F02.80 Dementia in other diseases classified elsewhere, unspecified severity, without behavioral disturbance, psychotic disturbance, mood disturbance, and anxiety; G24.3 Spasmodic torticollis
CPT/HCPCS: 99213; G2211

== ENCOUNTER 2025-08-11 10:27 | Outpatient (REF) | payer MEDICARE, SELFPAY ==
--- OUTSIDE RECORDS SUMMARY | 2025-08-08 23:59 | XMS_ITS | Continuity of Care Document ---
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 Name Role Phone Alix Bucio Primary Care Physician [phone] Encounter [facility] Date(s): 08/01/25 - 08/08/25 [facility] [address] [place] [address] Attending Physician: Soledad Barber MD Referring Physician: Alix Bucio Encounter Type: Office Visit Allergies, Adverse Reactions, Alerts Substance Criticality Severity Reaction Reaction Severity Status Dogs Active Dust Active Mold Active Ragweed SOB Active Immunizations Given and Recorded Vaccine Date Status Refusal Reason RSV vaccine preF3, recombinant 06/21/24 Recorded influenza virus vaccine, inactivated 06/21/24 Too rded influenza virus vaccine, inactivated 06/04/23 Too rded influenza virus vaccine, inactivated 05/31/22 Too rded influenza virus vaccine, inactivated 07/07/21 Too rded influenza virus vaccine, inactivated 07/04/20 Too rded influenza virus vaccine, inactivated 06/25/18 Too rded influenza virus vaccine, inactivated 06/14/17 Too rded influenza virus vaccine, inactivated 07/01/16 Too rded influenza virus vaccine, inactivated 06/26/15 Too rded influenza virus vaccine, inactivated 07/05/14 Too rded influenza virus vaccine, inactivated 07/01/13 Too rded SARS-CoV-2(COVID-19)mRNA-LNP vac([id number]) 06/07/24 Recorded SARS-CoV-2(COVID-19)mRNA-LNP vac([id number]) 07/15/23 Recorded pneumococcal 20-valent conjugate vaccine 03/24/23 Recorded zoster vaccine, inactivated 03/23/23 Recorded zoster vaccine, inactivated 05/31/22 Recorded [id number] 12y+ bivalent booster vax 10/16/22 Recorded SARS-CoV-2 mRNA ([id number]) vax 05/08/22 Recorded SARS-CoV-2 (COVID-19) mRNA BNT-162b2 vac 07/22/21 Recorded SARS-CoV-2 (COVID-19) mRNA BNT-162b2 vac 11/29/20 Given SARS-CoV-2 (COVID-19) mRNA BNT-162b2 vac 11/08/20 Given Influenza Virus Vaccine (oldterm) 05/2020 Recor ded Influenza Virus Vaccine (oldterm) 07/12/19 Recorde d pneumococcal 23-valent vaccine 09/16/16 Recorded pneumococcal 23-valent vaccine 07/07/07 Recorded pneumococcal 13-valent vaccine 12/18/14 Recorded Zoster Vaccine Live 01/06/13 Recorded Zoster Vaccine Live 2 12/2012 Recorded tetanus/diphtheria/pertussis, acel(Tdap) 03/03/12 Recorded 1Result Comment: [facility] 2Result Comment: [facility] amLODIPine 5 mg oral tablet 1 tablet, By Mouth, Daily, # 90 tablet, 2 Refills, Maintenance, 12/03/24 10:21:00 AM EST, [facility]/pharmacy #[id number], 154, cm, 11/23/24 3:56:00 EST, Height, 55, kg, 11/23/24 3:56:00 EST, Dry Weight Start Date: 12/03/24 Status: Ordered Medication Dispense Status: Completed Quantity: 90.0 Unit: tablet Total Allowed Fills: 3 Fills Dispensed: 0 atorvastatin 20 mg oral tablet 1 tablet, By Mouth, Daily, # 90 tablet, 1 Refills, Maintenance, 02/26/25 10:04:00 PM EDT, [id number], 153, cm, 02/11/25 8:54:00 EDT, Height, 50.5, kg, 01/31/25 13:31:00 EDT, Dry Weight Start Date: 02/26/25 Status: Ordered Medication Dispense Status: Completed Quantity: 90.0 Unit: tablet Total Allowed Fills: 1 Fills Dispensed: 0 budesonide-formoterol 160 mcg-4.5 mcg/inh inhalation aerosol with adapter INHALE 2 PUFFS BY MOUTH TWICE A DAY Start Date: 05/05/25 Status: Ordered Medication Dispense Status: Completed Total Allowed Fills: 1 Fills Dispensed: 0 Cholecalciferol By Mouth, 0 Refills, Maintenance, 02/09/24 10:18:00 AM EDT, Partial fill upon patient request if theprescription is for a schedule II opioid drug. Start Date: 02/09/24 Status: Ordered Medication Dispense Status: Completed Total Allowed Fills: 1 Fills Dispensed: 0 donepezil 5 mg oral tablet TAKE 1 TABLET BY MOUTH EVERY DAY AT BEDTIME FOR 90 DAYS Start Date: 11/15/24 Status: Ordered Medication Dispense Status: Completed Total Allowed Fills: 1 Fills Dispensed: 0 duloxetine 30 mg oral enteric coated capsule TAKE 1 CAPSULE BY MOUTH EVERY DAY IN THE MORNING Start Date: 05/05/25 Status: Ordered Medication Dispense Status: Completed Total Allowed Fills: 1 Fills Dispensed: 0 ferrous sulfate (as elemental iron) 45 mg oral tablet, extended release 1 tablet = 45 mg, By Mouth, Every 72 hours, # 20 tablet, 0 Refills, Maintenance, 06/02/25 5:29:00 PM EDT, [facility]/pharmacy #[id number], Partial fill upon patient request if the prescription is for a schedule II opioid drug., 153, cm, 05/19/25 9:15:00 EDT, Height, 50.5, kg, 01/31/25 13:31:00 EDT, Dry Weight Start Date: 06/02/25 Stop Date: 08/01/25 Status: Ordered Medication Dispense Status: Completed Quantity: 20.0 Unit: tablet Total Allowed Fills: 1 Fills Dispensed: 0 FLUoxetine 20 mg oral capsule 20 mg, 1, capsule, Refills 0, Maintenance, 08/19/23 10:31:00 AM EST, Partial fill upon patient request if the prescription is for a schedule II opioid drug. Start Date: 08/19/23 Status: Ordered Medication Dispense Status: Completed Total Allowed Fills: 1 Fills Dispensed: 0 fluticasone 50 mcg/inh nasal spray See Instructions, USE 1 SPRAY IN BOTH NOSTRILS DAILY IN THE MORNING FOR 14 DAYS, # 48 mL, 1 Refills, Maintenance, 04/12/25 9:56:00 AM EDT, [id number], 90, USE 1 SPRAY IN BOTH NOSTRILS DAILY IN THE MORNING FOR 14 DAYS, 153, cm, 02/11/25 8:54:00 EDT, Height, 50.5, kg, 01/31/25 13:31:00 EDT, Dry Weight Start Date: 04/12/25 Status: Ordered Medication Dispense Status: Completed Quantity: 48.0 Unit: mL Total Allowed Fills: 1 Fills Dispensed: 0 gabapentin 100 mg oral capsule 1, capsule, By Mouth, Daily, # 90 capsule, Refills 2, Maintenance, 07/27/25 12:57:00 PM EDT, Route to Pharmacy Electronically, [id number], 153, cm, 06/28/25 14:31:00 EDT, Height, 53.7, kg, 06/28/25 14:31:00 EDT, Dry Weight Start Date: 07/27/25 Status: Ordered Medication Dispense Status: Completed Quantity: 90.0 Unit: capsule Total Allowed Fills: 1 Fills Dispensed: 0 levocetirizine 5 mg oral tablet 1 tablet, By Mouth, Daily in PM, # 90 tablet, 1 Refills, Maintenance, 07/28/24 5:06:00 PM EDT, [id number], 90, TAKE 1 TABLET BY MOUTH EVERY EVENING, 153.2, cm, 07/16/24 12:17:00 EDT, Height, 59.2, kg, 02/02/24 13:19:00 EDT, Dry Weight Start Date: 07/28/24 Status: Ordered Medication Dispense Status: Completed Quantity: 90.0 Unit: tablet Total Allowed Fills: 1 Fills Dispensed: 0 LORazepam 0.5 mg oral tablet TAKE 2 TABLETS BY MOUTH AT BEDTIME Start Date: 02/09/24 Status: Ordered Medication Dispense Status: Completed Total Allowed Fills: 1 Fills Dispensed: 0 Probiotic Formula By Mouth, Daily, 0 Refills, Maintenance, 07/09/24 8:29:00 AM EDT, Partial fill upon patient requestif the prescription is for a schedule II opioid drug. Start Date: 07/09/24 Status: Ordered Medication Dispense Status: Completed Total Allowed Fills: 1 Fills Dispensed: 0 topiramate 25 mg oral tablet TAKE 1 TABLET BY MOUTH EVERY DAY FOR 90 DAYS Start Date: 11/15/24 Status: Ordered Medication Dispense Status: Completed Total Allowed Fills: 1 Fills Dispensed: 0 Ventolin 90 mcg Inhaler 1, puffs, Inhalation, prn, Refills 0, Maintenance, 11/21/22 2:59:00 PM EST Start Date: 11/21/22 Status: Ordered Medication Dispense Status: Completed Total Allowed Fills: 1 Fills Dispensed: 0 Vitamin B-12 1000 mcg oral tablet 1, tablet, By Mouth, Daily, # 90 tablet, Refills 1, Maintenance, 05/28/24 8:40:00 PM EDT, Route to Pharmacy Electronically, [id number], 153.2, cm, 05/18/24 8:26:00 EDT, Height, 59.2, kg, 02/01/2413:19:00 EDT, Dry Weight Start Date: 05/28/24 Status: Ordered Medication Dispense Status: Completed Quantity: 90.0 Unit: tablet Total Allowed Fills: 1 Fills Dispensed: 0 Problem List Condition Confirmation Course Effective Dates Status H ealth Status Informant Pelvic abscess in female 1 Confirmed Active Actinic keratosis Confirmed Active Allergic rhinitis Confirmed Active Anxiety disorder Confirmed Active Atrophic vaginitis Confirmed Active Benign paroxysmal positional vertigo Confirmed Active Chronic rhinitis Confirmed Active Claustrophobia Confirmed Active Vitamin B12 deficiency Confirmed Active B12 deficiency Confirmed Active Colitis Confirmed Active 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 Active Degenerative disorder of macula Confirmed Active Macular degeneration, bilateral Confirmed Active Disorder of lumbar disc Confirmed Active Diverticulitis of large intestine with complication Confirmed Active Fatigue Confirmed Active Foot pain Confirmed Active Gastroesophageal reflux disease Confirmed Active Hearing loss Confirmed Active HTN (hypertension) Confirmed Active Hyperlipidemia Confirmed Active Impingement syndrome of left shoulder Confirmed Active Insomnia Confirmed Active 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 Irritable bowel syndrome Confirmed Active Low back pain Confirmed Active Lumbar disc prolapse with compression radiculopathy Confirmed 08/13/12 Active Lumbar radiculopathy Confirmed Active Mild intermittent asthma Confirmed Active MRI scan abnormal Confirmed Active Multinodular goiter Confirmed Active Neck pain Confirmed Active Neuralgia Confirmed Active Nocturnal enuresis Confirmed Active Numbness of toe Confirmed Active Peripheral nerve disease Confirmed Active PONV (postoperative nausea and vomiting) 3 Confirmed Active Restless legs Confirmed Active S/P cholecystectomy Confirmed Active Senile hyperkeratosis Confirmed Active Strain of neck muscle Confirmed Active Syncope and collapse Confirmed Active Thyroid nodule Confirmed Active Tinnitus Confirmed Active Venous varices Confirmed Active 1peri-colonic - December 2021 2Dx 08/2021 3pt does not recall this Vital Signs Most recent to oldest [Reference Range]: 1 Height 151 cm (08/01/25 2:33 PM) Weight 53.8 kg (08/01/25 2:33 PM) Pulse Rate [55-90 bpm] 65 bpm (08/01/25 2:33 PM) Body Mass Index [18.5-24.99 kg/m2] 23.6 kg/m2 (08/01/25 2:33 PM) Blood Pressure [90-138/55-84 mm Hg] 158/ 85mm Hg *H* (08/01/25 2:33 PM) Blood pressure sites Arm, left (08/01/25 2:33 PM) Weight Obtained Via Bed scale (08/01/25 2:33 PM) Social History Social History Type Response Sexual Sexually involved in last 6 months: No. Gender identity: Identifies as female. Smoking Status Never (less than 100 in lifetime) entered on: 02/06/22 Sex Female Sex Representation Female (finding) Note * Bharath Anaya: PERFORM Event Display: Patient Education/Instruction Authored Date: [id number] Ambulatory Adult Visit Summary [facility] [address] [place] [address] Name: PAULINA RODNEY : 1940?? Visit: 08/01/2025 14:24?? Ambulatory Visit Instructions ?? Your Care Team Primary Care Provider Alix Bucio? This Visit Provider Soledad Barber MD Your Diagnosis Osteoporosis Vitals Signs Pulse Rate: 65 bpm Height: 151 cm Systolic Blood Pressure:??158 mm Hg??High Weight: 53.8 kg Diastolic Blood Pressure:??85 mm Hg??High Body Mass Index: 23.6 kg/m2 ?? Body surface area: 1.5 What to do next Instructions From Your Provider Calcium Content of Selected Foods ?? How Much Do You Need? Age Calcium (mg) 1 - 3 year old 500 mg 4 - 8 year old 800 mg 9 - 18 year old 1300 mg 19 - 50 year old 1000 mg 51 - 70 year old 1200 mg > 70 year old 1200 mg ?? You obtain the calcium intake goal by purchasing [id number]-[id number]-[id number] calcium pill (For example, citralcal maximum plus 1??tablets twice a day, with each table ts has 325mg calcium so totally will be 1300mg daily), or by dietary calcium from food listed below ? Dairy and Soy Amount Calcium (mg) Sells milk 1 cup 450 Milk (skim, low fat, whole) 1 cup 300 Buttermilk 1 cup 300 Cottage Cheese .5 cup 65 Ice Cream or Ice Milk .5 cup 100 Sour Cream, cultured 1 cup 250 Soy??Milk, calcium fortified 1 cup 200 to 400 Yogurt 1 cup 450 Yogurt drink 12 oz 300 [place] Instant Breakfast 1 packet 250 Hot [place], calcium fortified 1 packet 320 Nonfat dry milk powder 5 Tbsp 300 Brie Cheese 1 oz 50 Hard Cheese (cheddar,??sherly) 1 oz 200 Mozzarella 1 oz 200 Parmesan Cheese 1 Tbsp 70 Estonian or Gruyere 1 oz 270 ? Vegetables [place] squash, cooked 1 cup 90 Arugula, raw 1 cup 125 Bok [place], raw 1 cup 40 Broccoli, cooked 1 cup 180 Chard or Okra, cooked 1 cup 100 Chicory (curly endive), raw 1 cup 40 Reyna greens 1 cup 50 [place], brine packed 1 cup 10 Dandelion greens, raw 1 cup 80 Kale, raw 1 cup 55 Kelp or Kombe 1 cup 60 Mustard greens 1 cup 40 Spinach, cooked 1 cup 240 Turnip greens, raw 1 cup 80 ? Fruits Figs, dried, uncooked 1 cup 300 Kiwi, raw 1 cup 50 [place] juice, calcium fortified 8 oz 300 [place] juice, from concentrate 1 cup 20 ? Legumes Garbanzo Beans, cooked 1 cup 80 Legumes, general, cooked .5 cup 15 to 50 [place] Beans, cooked 1??cup 75 Soybeans, boiled .5 cup 100 Temphe .5 cup 75 Tofu, firm, calcium set 4 oz 250 to 750 Tofu, soft regular 4 oz 120 to 390 White Beans, cooked .5 cup 70 ? Grains Cereals (calcium fortified) .5 to 1 cup 250 to 1000 Amaranth, cooked .5 cup 135 Bread, calcium fortified 1 slice 150 to 200 Brown rice, long grain, raw 1 cup 50 Oatmeal, instant 1 package 100 to 150 Tortillas, corn 2 85 ? Nuts and Seeds Almonds, toasted unblanched 1 oz 80 Sesame seeds, whole roasted 1 oz 280 Sesame tahini 1 oz??(2 Tbsp) 130 [place] seeds, dried 1 oz 50 ? Fish Mackerel, canned 3 oz 250 [place], canned, with bones 3 oz 170 to 210 Sardines 3 oz 370 ? Other Molasses, blackstrap 1 Tbsp 135 ?? * When range is given, calcium content varies by product. * The??calcium content of plant foods is varied. Most vegetables, legumes, nuts, seeds, and dried fruit contain some calcium. Listed are selected significant sources of well-absorbed calcium. References:?[employer] database, Handbook 8 palm program?[employer]? Follow up in 1 year ? Scheduled Follow-Up Appointments Friday 8:30 AM EST ?? Type: MM Screening Mammo Where: [facility] [address] [address]- Status: Pending Friday2025 10:30 AM EDT ?? Type: US Breast Axillary Where: [facility] [address] [address]- Status: Pending Future Orders Ferritin - Routine, Once, 06/02/25 17:30:00 EDT, Order for Today, [facility], Blood?? CBC w/ Differential - Routine, Once, 06/02/25 17:30:00 EDT, Order for Today, [facility], Blood?? Iron + Iron Binding Capacity - Routine, Once, 06/02/25 17:30:00 EDT, Order for Today, [facility], Blood?? PTH Intact - Routine, Once, 08/01/25 15:04:00 EST, Single or Recurring Future Order, [facility], Blood?? Vitamin D 25 Hydroxy Level (25 OH Vitamin D Level) - Routine, Once, 08/01/25 15:05:00 EST, Single or Recurring Future Order, [facility], Blood?? Basic Metabolic Panel (BMP) - Routine, Once, 08/01/25 15:05:00 EST, Single or Recurring Future Order, [facility], Blood?? Albumin Level - Routine, Once, 08/01/25 15:05:00 EST, Single or Recurring Future Order, [facility], Blood?? Collagen 1 C Telopeptide - Routine, Once, 08/01/25 15:05:00 EST, Single or Recurring Future Order, [facility], Blood?? Medications The list below reflects the information in our records and provided by you today along with any changes made during this visit. Please continue your medications until treatment is completed or stopped by your provider. If this is different from the information you have or there are other questions,please contact the prescribing provider. What How Much When Instructions Unchanged Albuterol (Ventolin 90 mcg Inhaler) 1 puff(s) Inhalation Special Instructions: prn ?? Unchanged Amlodipine (amLODIPine 5 mg oral tablet) 1 tab(s) Oral Daily Ordering Physician: Alix Bucio Unchanged Atorvastatin (atorvastatin 20 mg oral tablet) 1 tab(s) Oral Daily Ordering Physician: Alix Bucio Unchanged bifidobacterium-lactobacillus (Probiotic Formula) Oral Daily Unchanged Budesonide-Formoterol (budesonide-formoterol 160 mcg-4.5 mcg/ inh inhalation aerosol withadapter) Special Instructions: INHALE 2 PUFFS BY MOUTH TWICE A DAY ?? Unchanged Cholecalciferol Oral Unchanged Cyanocobalamin (Vitamin B-12 1000 mcg oral tablet) 1 tab(s) Oral Daily Ordering Physician: Ekaterina Carter Unchanged Donepezil (donepezil 5 mg oral tablet) Special Instructions: TAKE 1 TABLET BY MOUTH EVERY DAY AT BEDTIME FOR 90 DAYS ?? Unchanged Duloxetine (duloxetine 30 mg oral enteric coated capsule) Special Instructions: TAKE 1 CAPSULE BY MOUTH EVERY DAY IN THE MORNING ?? Unchanged Ferrous Sulfate (ferrous sulfate (as elemental iron) 45 mg oral tablet, extended release) 1 tab(s) Oral Every 72 hours Duration: 60 Days Ordering Physician: Alix Bucio Unchanged Fluoxetine (FLUoxetine 20 mg oral capsule) 1 capsule Unchanged Fluticasone Nasal (fluticasone 50 mcg/ inh nasal spray) See instructions Special Instructions: USE 1 SPRAY IN BOTH NOSTRILS DAILY IN THE MORNING FOR 14 DAYS Ordering Physician: Alix Bucio ?? Unchanged Gabapentin (gabapentin 100 mg oral capsule) 1 capsule Oral Daily Ordering Physician: Alix Bucio Unchanged levocetirizine (levocetirizine 5 mg oral tablet) 1 tab(s) Oral Daily in PM Ordering Physician: Deidre Jiménez NP Unchanged Lorazepam (LORazepam 0.5 mg oral tablet) Special Instructions: TAKE 2 TABLETS BY MOUTH AT BEDTIME ?? Unchanged Topiramate (topiramate 25 mg oral tablet) Special Instructions: TAKE 1 TABLET BY MOUTH EVERY DAY FOR 90 DAYS ?? Test Performed Below is a partial list of the tests performed during your Visit. You may have had other tests and procedures not included in this list. Please discuss all test results with your provider. 25 OH Vitamin D Level?-- Results Pending -- Albumin Level?-- Results Pending -- Basic Metabolic Panel (BMP)?-- Results Pending -- Collagen 1 C Telopeptide?-- Results Pending -- PTH Intact?-- Results Pending -- Medications and Immunizations Administered Medications Given During Visit No medications given during this visit.?? Allergies (NKA means No Known Allergies) Dogs Dust Mold Ragweed??SOB Common Emergency Awareness Tips IS IT A STROKE? Act FAST and Check for these signs: FACE Does the face look uneven? ARM Does one arm drift down? SPEECH Does their speech sound strange? TIME Call at any sign of stroke ?? Heart Attack Signs Chest discomfort: Most heart attacks involve discomfort in the center of the chest and lasts more than a few minutes, or goes away and comes back. It can feel like uncomfortable pressure, squeezing, fullness or pain. Discomfort in upper body: Symptoms can include pain or discomfort in one or both arms, back, neck, jaw or stomach. Shortness of breath: With or without discomfort. Other signs: Breaking out in a cold sweat, nausea, or lightheaded. Remember, MINUTES DO MATTER. If you experience any of these heart attack warning signs, call to get immediate medical attention! ?? Smoking can increase your chances of developing chronic health problems and can cause harmful effects to other family members in your house. If you smoke, you are strongly encouraged to quit. Please call [employer] at [phone] or [phone] ([phone]) or log in to [email or web address] for referrals to smoking cessation programs. ?? The National Suicide Prevention Hotline is available 21/04 if you or someone you know needs to find a reason to keep living. By calling 9-972-925-[employer] (7750) you'll be connected to a skilled, trained counselor at a crisis center in your area. [facility] Portal You can view and manage your care through the patient portal or by using a health care femi of your choosing. [employer] is a website that allows you to securely view your medical information including your hospital discharge summary, office visit summaries, medications and follow-up visits. You can also request appointments, renew medications, and request access to your medical information using a health care femi of your choosing, or just ask a question. You can enroll at [email or web address] or register during your next office visit. [facility], in keeping with [facility] guidance, no longer requires face masks for staff, patientsor visitors in most situations. Similiar to time spent indoors at other locations, there is the chance that you were exposed to repiratory viruses during your time with us (such as flu or COVID-19). If you develop symptoms concerning for a viral respiratory infection, please seek testing (and treatment if indicated) from your medical provider or home test kit. ?? Disclaimer: The information provided is of a general nature and is intended to be used in conjunction with the recommendations and advice of your health care practitioner. Every effort has been made to ensure that the information provided is accurate and complete at the time it is provided to you however, as your needs change, or, as new information becomes available, different or additional instructions may be required. ?? If you have questions, please consult with your primary care provider or pharmacist, as appropriate. This information is not intended to serve as substitution for assessment and evaluation by a qualified health care provider. If you do not have a primary care provider, you may find a [facility] provider by calling [employer] at [phone]. Patient Care team information Care Team Personnel Name: Lauryn Narayan RN Position: ROSIE RN Member Role: Primary Care Nurse Name: Alix Bucio Position: [facility] Associate Professional Member Role: PCP Address: [address] [facility] [place] [address]- [place] [employer]: Name: Michelle Hwang Position: [facility] RN Member Role: Primary Care Nurse Name: Teressa Diaz RN Position: [facility] RN Member Role: Primary Care Nurse Name: Lauryn Rubio RN Position: [facility] basketball scout Member Role: Coffee Blender Name: Shane Preston MD Position: [facility] Outreach Member Role: Lif[employer] Consulting Physician Address: [address] [facility], [place] [address]- [place] [employer]: Name: Viridiana Castillo RN Position: [facility] RN Member Role: Primary Care Nurse Name: Radha Dominguez RN Position: [facility] Onco RN Member Role: Primary Care Nurse Name: Adriana Goncalves RN Position: [facility] ED RN W/OE and Tasks Member Role: Primary Care Nurse Name: Radha Alexandra Position: [facility] [place] Member Role: Primary Care Nurse Care Team Related Persons Name: LILA RODNEY Name: MATEO RODNEY Name: LILA VELA Insurance Providers Guarantor name: PAULINA RODNEY Health Plan Information #: 1 Payer: MEDICARE B Payer Identifier: Member Number: [id number] Group Number: Subscriber Identifier: [id number] Relationship to Subscriber: self Coverage Type: NA Coverage Verification Date: Telecom: Address: Health Plan Information #: 2 Payer: [employer] SECONDARY ONLY Payer Identifier: Member Number: [id number] Group Number: Subscriber Identifier: [id number] Relationship to Subscriber: self Coverage Type: Medicare Other Coverage Verification Date: Telecom: Address:
--- NOTE | ~2025-08-11 | XR_ITS ---
EXAMINATION: XR CERVICAL SPINE CLINICAL INFORMATION: M54.2 - Cervicalgia COMPARISON: None available. TECHNIQUE: 4 views FINDINGS: Bone mineralization is decreased. The neck is flexed on the lateral position. There is mild C3-4 anterolisthesis, and mild C6-7 anterolisthesis. No prevertebral soft tissue swelling. Vertebral body heights are maintained. No visible acute fracture. Multilevel disc degeneration, more prominent findings at C5-6, C6-7, with anterior bridging osteophytes. Multilevel facet degeneration. No suspicious findings in lung apices. XR/XR cervical spine 3V IMPRESSION: Decreased bone mineralization. No radiographic evidence of acute fracture. Multilevel cervical spondylosis as detailed above. Electronically signed by: Delonte Bishop MD 08/12/2025 08:46 AM ELIZABETH DELUCA
== END 2025-08-11 10:28 | disposition home or self-care (01) ==
LOC: HO.XRAY 10:27
PROVIDERS: Family Provider Internal Medicine; PCP Physician Assistant; Visit Provider Psychiatry & Neurology Neurology
DX: M54.2 Cervicalgia (principal); G44.229 Chronic tension-type headache, not intractable; G30.9 Alzheimer's disease, unspecified; F02.80 Dementia in other diseases classified elsewhere, unspecified severity, without behavioral disturbance, psychotic disturbance, mood disturbance, and anxiety; G24.3 Spasmodic torticollis
CPT/HCPCS: 72040; 99212

== ENCOUNTER → 2025-08-11 10:56 | Outpatient (BNV) | payer MEDICARE, SELFPAY | PROVIDERS: Family Provider Internal Medicine; PCP Physician Assistant; Visit Provider Radiology Diagnostic Ultrasound | DX: M47.812 Spondylosis without myelopathy or radiculopathy, cervical region (principal); M85.88 Other specified disorders of bone density and structure, other site | CPT/HCPCS: 72040 ==

== ENCOUNTER 2025-08-16 09:21 | Outpatient (AMB) | payer MEDICARE, SELFPAY ==
--- NOTE | 2025-08-16 09:24 | MHC.OFFVIS ---
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 She tells me that the headaches that she is currently having are different than any headache that she has had before. She does have migraine and tension type headaches. These headaches started about 1 year ago but again are different than any headache she has had in the past. They have been starting at the left base of her skull and radiates to the left occipital and postauricular area. She also has some tenderness to touch in this area. It arises most often at night time. This pain is always there but the pain intensifies at night. It does not wake her up out of sleep but when she does awake from sleep during the night it is present. She denies any light sensitivity, sound sensitivity, nausea, dizziness, or any visual changes with these headaches. She denies any autonomic features. Review of Systems Const All systems reviewed & are unremarkable except as noted in HPI and below Physical Exam Vital Signs: Last Vital Signs Pulse 72 08/16/25 09:50 Resp 16 08/16/25 09:50 BP 142/70 H 08/16/25 09:50 Pulse Ox 98 08/16/25 09:50 Oxygen Delivery Method Room Air 08/16/25 09:50 BMI result Body Mass Index 22.5 Const General: cooperative, healthy appearing, comfortable and no acute distress Nutritional Appearance: well nourished Orientation/consciousness: patient oriented x3 Limitations: no limitations HEENT Head: Yes normal to inspection and Yes normocephalic Eyes General: appearance normal, both eyes and all related structures Visual Flowers: normal visual flowers by confrontation Alignment and Position: alignment normal Periorbital: periorbital findings normal Eyelids: Yes eyelids normal Conjunctivae: conjunctivae normal Sclerae: sclerae normal Back/Spine/Pelvis Other: Very large very tender left trapezius trigger point to the upper trapezius area. Tenderness over the left lesser occipital nerve pathway. Neuro General: patient oriented x3 Cranial nerves: Yes CN's II-XII intact bilaterally and Yes Facial sensation intact/muscles of mastication intact Cognition (Neuro): normal cognition Gait exam (Neuro): Normal gait present Motor exam (neuro): no tremor noted Sensory Exam: double simultaneous stimulation for sensation normal Romberg Test: Negative Pupils: Normal pupillary reactivity/response: bilateral Psych Appearance: grossly normal Mental Status: mental status grossly normal Speech and movement: Normal speech and movement present and Clear speech present Affect: normal affect Attitude: cooperative Thought process: Normal thought process present Thought content: Normal thought content present Insight: Good insight present (Psych) Judgement: Good judgement present (Psych) Office Procedures Therapeutic Injection Therapeutic Injection Details: Trigger point injection procedure: Laterally:Left Indications: Chronic headaches, myofascial pain Following universal hygiene protocol, after explaining the risks and benefits as well as hazards of the procedure to the patient, consent was signed and placed in the chart. Time-out prior to starting the procedure was performed. The areas over the left trapezius were cleansed with alcohol. 2 Sites in the left upper trapezius muscle injected with a 27 gauge 1.5 in needle with myofascial spasm. Patient tolerated the procedure well, localized bleeding was controlled. Patient monitored in the clinic for 15 minutes for complications. Patient was discharged home with instructions to apply ice to the back of their head as needed. 02085-Ncmuvvo Point Injection 1 or 2 sites All charges added?: Procedure code (CPT) selection complete Office Meds bupivacaine (PF) 0.5 % (5 mg/mL) injection solution Performing Provider: Yoli Godwin CNP Performing Location: [facility] Administered by: Yoli Godwin CNP on 08/16/25 10:27 Dose Route Admin Location Dispensed Lot Number Expiration Date 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 2 mL Infiltration 10 mL 7939-1196-58 [employer] Total Dispensed Waste 10 mL 80 % Assessment & Plan Assessment & Plan (1) Chronic tension type headache: Comment: Meds tried: Topiramate, cyclobenzperine Code(s): G44.229 - Chronic tension-type headache, not intractable Category: Medical Qualifiers: Intractability: not intractable Qualified Code(s): G44.229 - Chronic tension-type headache, not intractable (2) Trigger point of left shoulder region: Code(s): M25.512 - Pain in left shoulder Category: Medical Plan With a past medical history of breast cancer, mild Alzheimer's dementia, migraine headaches, tension-type headaches, who is here today for a ?new type of headache?. Her pain is to the left lesser occipital nerve pathway and she has a very large trigger point which is also very tender to touch in the left upper trapezius area. I performed a left trapezius trigger point injections today without any complications as documented above. I will have her return in 3 weeks for a 2nd round of injections and for further evaluation. Orders: Orders AMB Trigger Point Injection Today G44.229 - Chronic tension-type headache, not intractable, M25.512 - Pain in left shoulder Coding Level of Care Code Est Pt Level 4 (01889) Diagnoses Chronic tension-type headache, not intractable G44.229 Intractability: not intractable Trigger point of left shoulder region M25.512 CPT Codes Therapeutic Injection - Ther Injection 1: 53473-Fcyycxm Point Injection 1 or 2 sites ([id number])
[2025-08-16 09:50] VITALS: BP 142/70; PULSE 72; RESP 16; O2SAT 98; BMI 22.5
== END 2025-08-16 10:24 | disposition home or self-care (01) ==
LOC: HO.HSM 09:21
PROVIDERS: PCP Physician Assistant; Visit Provider Nurse Practitioner
DX: G44.229 Chronic tension-type headache, not intractable (principal); M25.512 Pain in left shoulder; M79.12 Myalgia of auxiliary muscles, head and neck
CPT/HCPCS: 20552; 99214

== ENCOUNTER → 2025-08-16 09:21 | Outpatient (BNVA) | payer MEDICARE, SELFPAY | PROVIDERS: PCP Physician Assistant; Visit Provider Nurse Practitioner | DX: G44.229 Chronic tension-type headache, not intractable (principal); M25.512 Pain in left shoulder | CPT/HCPCS: 20552; 99212; J0665 ==

== ENCOUNTER 2025-09-12 12:05 | Outpatient (AMB) | payer MEDICARE, SELFPAY ==
--- NOTE | 2025-09-12 12:09 | A.OFFVIS_ITS ---
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 At the time of our 1st encounter together, she reported a different type of headache. This started approximately 1 year ago. They had been starting at the left base of her skull and radiating to the left occipital and postauricular area. She also had some tenderness to touch in this area. It was arising most often at night time. This pain was always there but more intense at nighttime. It did not wake her up out of sleep but when she awoke from sleep during the night it was present. She denied any light sensitivity, sound sensitivity, nausea, dizziness, or any visual changes with these headaches. She denied any autonomic features. On exam, she had a distinct left-sided trigger point to these left trapezius/scapular area. I brought her back for a trigger point injection which I performed at last visit without any complications. She tells me today that she did have resolution of her headaches for a few weeks after her injection. She did feel much better. Over the course of the last week or so her headaches has been coming back slowly. She does mentioned that her left upper extremity began to swell. She does have a history of a mastectomy in the left side. She did also however have a left- sided blood draw which she normally does not do before her swelling started. Her trigger point injection blood draw our around the same time. She questions whether or not the trigger point injection to the left scapular area may have caused the swelling or if it was more likely to be the blood draw or even other causes. Review of Systems Const All systems reviewed & are unremarkable except as noted in HPI and below Physical Exam Vital Signs: Last Vital Signs Pulse 72 09/12/25 12:10 Resp 16 09/12/25 12:10 BP 132/70 09/12/25 12:10 Pulse Ox 98 09/12/25 12:10 Oxygen Delivery Method Room Air 09/12/25 12:10 BMI result Body Mass Index 22.5 Const General: cooperative, healthy appearing, comfortable and no acute distress Nutritional Appearance: well nourished Orientation/consciousness: patient oriented x3 Limitations: no limitations HEENT Head: Yes normal to inspection and Yes normocephalic Eyes General: appearance normal, both eyes and all related structures Visual Flowers: normal visual flowers by confrontation Alignment and Position: alignment normal Periorbital: periorbital findings normal Eyelids: Yes eyelids normal Conjunctivae: conjunctivae normal Sclerae: sclerae normal Back/Spine/Pelvis Other: Very large very tender left trapezius trigger point to the upper trapezius area. Tenderness over the bilateral greater occipital nerve pathways. Neuro General: patient oriented x3 Cranial nerves: Yes CN's II-XII intact bilaterally and Yes Facial sensation intact/muscles of mastication intact Cognition (Neuro): normal cognition Gait exam (Neuro): Normal gait present Motor exam (neuro): no tremor noted Sensory Exam: double simultaneous stimulation for sensation normal Romberg Test: Negative Pupils: Normal pupillary reactivity/response: bilateral Psych Appearance: grossly normal Mental Status: mental status grossly normal Speech and movement: Normal speech and movement present and Clear speech present Affect: normal affect Attitude: cooperative Thought process: Normal thought process present Thought content: Normal thought content present Insight: Good insight present (Psych) Judgement: Good judgement present (Psych) Office Procedures Nerve Block Details: Bilateral Greater Occipital Nerve block procedure: Laterally: Bilateral Indications: Occipital neuralgia Current allergies and current list of medications were reviewed prior to procedure, verbal consent was obtained, procedure was explained in detail to the patient prior to starting. Time-out was performed prior to procedure. Following universal hygiene protocols, patient's left occipital area was located by drawing a line between the external occipital protuberance and the mastoid process. The greater occipital nerve was located approximately 2/3 along this utility lineman to the occiput, and corresponded with the point of maximum tenderness. Alcohol was applied topically to the skin. A 27 gauge needle (aspirating during insertion) was inserted at a 45 degree angle until just above the periosteum. The providers selected agent (s)/medications (as documented in this note) were injected on the left side (directing needle to center, left and right of painful focus any fanning technique). Pressure with gauze pad was held briefly upon the site of puncture to minimize bleeding and to further spread anesthetic subcutaneously. The procedure was repeated on the right side. The patient was monitored for 15 minutes after the procedure and no complications were observed. Post procedure care was reviewed with the patient including application of ice intermittently to the injection sites over the course of the day to reduce inflammation. 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 5 mL Infiltration 10 mL [id number] [employer] A[employer]ZER Total Dispensed Waste 10 mL 50 % Assessment & Plan Assessment & Plan (1) Chronic tension type headache: Comment: Meds tried: Topiramate, cyclobenzperine Code(s): G44.229 - Chronic tension-type headache, not intractable Category: Medical Qualifiers: Intractability: not intractable Qualified Code(s): G44.229 - Chronic tension-type headache, not intractable (2) Trigger point of left shoulder region: Code(s): M25.512 - Pain in left shoulder Category: Medical Plan Enma is an 85-year-old female with a past medical history of breast cancer, mild Alzheimer's dementia, migraine headaches, tension-type headaches, who is here today for a follow up appointment. She had good outcomes in terms of headache control with the left trigger point injection alone. She tells me however that she had left upper extremity swelling though notably, she did also have a left arm blood draw. I can not be certain that there was no correlation to the trigger point injection and her left upper extremity swelling though I suppose this is less likely. I have asked her to reach out to her oncologist Dr. Farmer to inquire on whether or not it is safe to proceed with any further left-sided trigger point injections to the left scapular/trapezius area. For now, we performed bilateral occipital nerve blocks for headache control in the time being. She tolerated the procedure without any complications. -bilateral occipital nerve blocks performed in office today -patient will return in 1 month at which time we will decide on whether or not to perform nerve blocks alone or if it is safe to proceed with trigger point injections based on the response from her oncologist Orders: Orders AMB Nerve Block Today G44.229 - Chronic tension-type headache, not intractable, M25.512 - Pain in left shoulder, M54.81 - Occipital neuralgia Coding Level of Care Code Est Pt Level 4 (42254) Diagnoses Chronic tension-type headache, not intractable G44.229 Intractability: not intractable Trigger point of left shoulder region M25.512 CPT Codes Nerve Block - CPT: 47088-Kagchkr Occipital ([id number])
[2025-09-12 12:10] VITALS: BP 132/70; PULSE 72; RESP 16; O2SAT 98; BMI 22.5
== END 2025-09-12 13:02 | disposition home or self-care (01) ==
LOC: HO.HSM 12:06
PROVIDERS: PCP Physician Assistant; Visit Provider Nurse Practitioner
DX: M25.512 Pain in left shoulder (principal); G44.229 Chronic tension-type headache, not intractable; M54.81 Occipital neuralgia
CPT/HCPCS: 64405; 99214

== ENCOUNTER → 2025-09-12 12:05 | Outpatient (BNVA) | payer MEDICARE, SELFPAY | PROVIDERS: PCP Physician Assistant; Visit Provider Nurse Practitioner | DX: M25.512 Pain in left shoulder (principal); G44.229 Chronic tension-type headache, not intractable; M54.81 Occipital neuralgia | CPT/HCPCS: 64405; 99212; J0665 ==